=== PATIENT | female | born 1995 | race Caucasian/White ===

== ENCOUNTER 2017-05-11 08:43 | Emergency (ER) | payer BC, MEDICAID ==
[2017-05-11 09:07] VITALS: BP 126/87
--- NOTE | 2017-05-11 10:31 | EDM.PDOC ---
ED HPI GENERAL MEDICAL PROBLEM - General Chief Complaint: Upper Extremity Injury/Pain Stated Complaint: LT ARM INJURY Time Seen by Provider: 05/11/17 09:14 Source of Information: Reports: Patient, RN Notes Reviewed - History of Present Illness INITIAL COMMENTS - FREE TEXT/NARRATIVE: 21 year old female with L wrist pain. She fell unto her wrist last evening. Continued pain L wrist today, worse with motion. No other pain or injury. Left Lower Arm Pain Score (Numeric/FACES): 10 - Related Data Allergies Allergy/AdvReac Type Severity Reaction Status Date / Time ondansetron Allergy Hives Verified 05/11/17 09:03 Home Meds: Home Meds Albuterol [Proventil HFA] 2 puff INH ASDIRECTED PRN 07/19/15 [History] Control. 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 Psychiatric History: Reports: Anxiety, Depression - Infectious Disease History Infectious Disease History: Reports: None - Past Surgical History HEENT Surgical History: Reports: Tonsillectomy Social & Family History - Tobacco Use Smoking Status *Q: Never Smoker - Caffeine Use Caffeine Use: Reports: Soda, Tea - Recreational Drug Use Recreational Drug Use: No - Living Situation & Occupation Living situation: Reports: Single, with Family Review of Systems - Review of Systems Review Of Systems: See Below Constitutional: Reports: No Symptoms Eyes: Reports: No Symptoms Ears: Reports: No Symptoms Nose: Reports: No Symptoms Mouth/Throat: Reports: No Symptoms Respiratory: Denies: Shortness of Breath Cardiovascular: Denies: Chest Pain GI/Abdominal: Denies: Abdominal Pain, Nausea, Vomiting Musculoskeletal: Reports: Joint Pain (L wrist) Skin: Reports: Bruising (L wrist and forearm) ED EXAM, GENERAL - Physical Exam Exam: See Below General Appearance: Alert, No Apparent Distress Head: Atraumatic Neck: Supple Respiratory/Chest: No Respiratory Distress Extremities: Joint Swelling (question mild swelling L wrist), Limited Range of Motion (L wrist secondary to pain), Other (there is tenderness of the dorsal L wrist and very distal L forearm, no visible deformity). No: Leg Pain Neurological: No Motor/Sensory Deficits Skin Exam: Warm, Dry Course - Vital Signs Last Recorded V/S: Last Vital Signs Temp 97.4 F 05/11/17 09:03 Pulse 67 05/11/17 09:03 Resp 16 05/11/17 09:03 BP 126/87 05/11/17 09:03 Pulse Ox 99 05/11/17 09:03 - Orders/Labs/Meds Orders: Active Orders 24 hr Category Date Time Status Wrist Comp Min 3V Lt [CR] Stat Exams 05/11/17 09:23 Taken - Re-Assessments/Exams Free Text/Narrative Re-Assessment/Exam: 05/11/17 13:54 no fx Departure - Departure Time of Disposition: 10:23 Disposition: Home, Self-Care 01 Condition: Fair Clinical Impression: Left wrist sprain Qualifiers: Encounter type: initial encounter Qualified Code(s): S63.502A - Unspecified sprain of left wrist, initial encounter - Discharge Information Instructions: Wrist Sprain Referrals: Sherry Rangel NP [Primary Care Provider] - Forms: ED Department Discharge Additional Instructions: Nando wrap left wrist, ice packs and elevation as needed for swelling, Tylenol or ibuprofen as needed for pain, follow-up clinic if not getting back to normal within 5-7 days as expected - My Orders Last 24 Hours: My Active Orders 05/11/17 09:23 Wrist Comp Min 3V Lt [CR] Stat - Assessment/Plan Last 24 Hours: My Active Orders 05/11/17 09:23 Wrist Comp Min 3V Lt [CR] Stat
--- NOTE | 2017-05-11 19:07 | CR ---
Left wrist: Four views of the left wrist were obtained. Comparison: Previous MRI left wrist exam of 06/11/16 is available. Joint spaces are maintained. No fracture, dislocation or other bony abnormality is seen. Impression: 1. No abnormality is seen on four-view left wrist exam. Diagnostic code #1
== END 2017-05-11 11:00 | disposition home or self-care (01) ==
LOC: JD.ED 08:43
DX: S63.502A Unspecified sprain of left wrist, initial encounter (principal); J45.909 Unspecified asthma, uncomplicated; F41.9 Anxiety disorder, unspecified; F32.9 Major depressive disorder, single episode, unspecified; Z98.890 Other specified postprocedural states; Z88.8 Allergy status to other drugs, medicaments and biological substances; X58.XXXA Exposure to other specified factors, initial encounter
CPT/HCPCS: 73110-26-LT; 73110-LT; 99283

== ENCOUNTER 2017-07-06 18:05 | Emergency (ER) | payer BC ==
[2017-07-06 18:14] VITALS: BP 141/82
[2017-07-06] MEDS ORDERED: Sodium Chloride 0.9% 1,000 ML IV ONE (18:34)
--- NOTE | 2017-07-06 18:35 | EDM.PDOC ---
ED HPI GENERAL MEDICAL PROBLEM - General Chief Complaint: Abdominal Pain Stated Complaint: ABDOMINAL,SIDE AND BACK PAIN Time Seen by Provider: 07/06/17 18:25 Source of Information: Reports: Patient History Limitations: Reports: No Limitations - History of Present Illness INITIAL COMMENTS - FREE TEXT/NARRATIVE: 22-year-old female presents for evaluation treatment of right lower quadrant abdominal pain that radiates to her back pain. Patient reports that this pain has been going on and off for the last month. She reports that the pain is steadily worsening. States it is now a 10 out of 10 and worse with movement. She reports associated symptoms of a decreased appetite and nausea. She also reports feeling hot and cold but has not had any fevers. She states that she's tried Tylenol and Motrin without any symptom relief. She is also on hydrocortisone for wrist pain but did not take any hydrocodone for her abdominal pain. She denies any fevers, vomiting, dysuria, hematuria, diarrhea, constipation, melena or hematochezia. She no previous surgeries to her abdomen. Last menstrual period was June 13. She is currently on oral contraceptives. Right Lower Abdomen Pain Score (Numeric/FACES): 8 - Related Data Allergies Allergy/AdvReac Type Severity Reaction Status Date / Time ondansetron Allergy Hives Verified 07/06/17 18:14 Home Meds: Home Meds Albuterol [Proventil HFA] 2 puff INH ASDIRECTED PRN 07/19/15 [History] Control. 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 Denies: Fever GI/Abdominal: Reports: Abdominal Pain (RLQ), Decreased Appetite, Nausea. Denies : Constipation, Diarrhea, Hematochezia, Melena, Vomiting : Reports: No Symptoms. Denies: Dysuria, Hematuria Musculoskeletal: Reports: Back Pain (right lower back) ED EXAM, GI/ABD - Physical Exam Exam: See Below Exam Limited By: No Limitations General Appearance: Alert, WD/WN, No Apparent Distress, Obese Nose: Normal Inspection Throat/Mouth: Normal Inspection, Normal Voice, No Airway Compromise Respiratory/Chest: No Respiratory Distress, Lungs Clear, Normal Breath Sounds Cardiovascular: Normal Peripheral Pulses, Regular Rate, Rhythm, No Murmur GI/Abdominal Exam: Normal Bowel Sounds, Soft, Rebound, Other (mcburnies sign; + psosas sign; minor pain with heel percussion) Neurological: Alert, Oriented, Normal Cognition Psychiatric: Normal Affect, Normal Mood Skin Exam: Warm, Dry, Normal Color Course - Vital Signs Last Recorded V/S: Last Vital Signs Temp 36.1 C 07/06/17 18:11 Pulse 87 07/06/17 18:11 Resp 16 07/06/17 18:11 BP 141/82 H 07/06/17 18:11 Pulse Ox 100 07/06/17 18:11 - Orders/Labs/Meds Labs: Laboratory Tests 07/06/17 07/06/17 07/06/17 Range/Units 18:20 18:40 18:40 WBC 8.51 (3.98-10.04) K/mm3 RBC 4.39 (3.98-5.22) M/mm3 Hgb 14.1 (11.2-15.7) gm/L Hct 41.4 (34.1-44.9) % MCV 94.3 (79.4-94.8) fl MCH 32.1 (25.6-32.2) pg MCHC 34.1 (32.2-35.5) g/dl RDW Std Deviation 43.5 (36.4-46.3) fL Plt Count 332 (182-369) K/mm3 MPV 9.5 (9.4-12.3) fl Neutrophils % (Manual) 49 (40-60) % Band Neutrophils % 0 (0-10) % Lymphocytes % (Manual) 40 (20-40) % Atypical Lymphs % 7 % Monocytes % (Manual) 4 (2-10) % Eosinophils % (Manual) 0 L (0.7-5.8) % Basophils % (Manual) 0 L (0.1-1.2) Platelet Estimate Adequate Plt Morphology Comment Normal RBC Morph Comment Normal Sodium 143 (136-145) mEq/L Potassium 3.2 L (3.5-5.1) mEq/L Chloride 107 (98-107) mEq/L Carbon Dioxide 26 (21-32) mEq/L Anion Gap 13.2 (5-15) BUN 6 L (7-18) mg/dL Creatinine 0.9 (0.55-1.02) mg/dL Est Cr Clr Drug Dosing 86.10 mL/min Estimated GFR (MDRD) > 60 (>60) mL/min BUN/Creatinine Ratio 6.7 L (14-18) Glucose 111 H (74-106) mg/dL Calcium 9.3 (8.5-10.1) mg/dL Total Bilirubin 0.2 (0.2-1.0) mg/dL AST 17 (15-37) U/L ALT 21 (14-59) U/L Alkaline Phosphatase 41 L (46-116) U/L C-Reactive Protein 0.4 (<1.0) mg/dL Total Protein 7.4 (6.4-8.2) g/dl Albumin 3.9 (3.4-5.0) g/dl Globulin 3.5 gm/dL Albumin/Globulin Ratio 1.1 (1-2) HCG, Qual (NEGATIVE) Urine Color Yellow (Yellow) Urine Appearance Clear (Clear) Urine pH 7.0 (5.0-8.0) Ur Specific [place] 1.020 (1.005-1.030) Urine Protein Negative (Negative) Urine Glucose (UA) Negative (Negative) Urine Ketones Negative (Negative) Urine Occult Blood Negative (Negative) Urine Nitrite Negative (Negative) Urine Bilirubin Negative (Negative) Urine Urobilinogen 0.2 (0.2-1.0) Ur Leukocyte Esterase Negative (Negative) Urine RBC 0-5 (0-5) /hpf Urine WBC 0-5 (0-5) /hpf Ur Epithelial Cells 0-5 (0-5) /hpf Urine Bacteria Many H (FEW) /hpf Urine Mucus Not seen (FEW) /hpf 07/06/ Range/Units 18:40 WBC (3.98-10.04) K/mm3 RBC (3.98-5.22) M/mm3 Hgb (11.2-15.7) gm/L Hct (34.1-44.9) % MCV (79.4-94.8) fl MCH (25.6-32.2) pg MCHC (32.2-35.5) g/dl RDW Std Deviation (36.4-46.3) fL Plt Count (182-369) K/mm3 MPV (9.4-12.3) fl Neutrophils % (Manual) (40-60) % Band Neutrophils % (0-10) % Lymphocytes % (Manual) (20-40) % Atypical Lymphs % % Monocytes % (Manual) (2-10) % Eosinophils % (Manual) (0.7-5.8) % Basophils % (Manual) (0.1-1.2) Platelet Estimate Plt Morphology Comment RBC Morph Comment Sodium (136-145) mEq/L Potassium (3.5-5.1) mEq/L Chloride (98-107) mEq/L Carbon Dioxide (21-32) mEq/L Anion Gap (5-15) BUN (7-18) mg/dL Creatinine (0.55-1.02) mg/dL Est Cr Clr Drug Dosing mL/min Estimated GFR (MDRD) (>60) mL/min BUN/Creatinine Ratio (14-18) Glucose (74-106) mg/dL Calcium (8.5-10.1) mg/dL Total Bilirubin (0.2-1.0) mg/dL AST (15-37) U/L ALT (14-59) U/L Alkaline Phosphatase (46-116) U/L C-Reactive Protein (<1.0) mg/dL Total Protein (6.4-8.2) g/dl Albumin (3.4-5.0) g/dl Globulin gm/dL Albumin/Globulin Ratio (1-2) HCG, Qual Negative (NEGATIVE) Urine Color (Yellow) Urine Appearance (Clear) Urine pH (5.0-8.0) Ur Specific [place] (1.005-1.030) Urine Protein (Negative) Urine Glucose (UA) (Negative) Urine Ketones (Negative) Urine Occult Blood (Negative) Urine Nitrite (Negative) Urine Bilirubin (Negative) Urine Urobilinogen (0.2-1.0) Ur Leukocyte Esterase (Negative) Urine RBC (0-5) /hpf Urine WBC (0-5) /hpf Ur Epithelial Cells (0-5) /hpf Urine Bacteria (FEW) /hpf Urine Mucus (FEW) /hpf Meds: Medications Discontinued Medications Generic Name Dose Route Start Last Admin Trade Name Freq PRN Reason Stop Dose Admin Diatrizoate Meglum/Diatrizoate Sod 90 ml 07/06/17 20:44 07/06/17 20:53 Gastrografin 37% PO 07/06/17 20:45 90 ml ONETIME ONE Administration Sodium Chloride 1,000 mls @ 999 mls/hr 07/06/17 18:34 07/06/17 18:39 Normal Saline IV 07/06/17 19:34 999 mls/hr ONETIME ONE Administration Iopamidol 125 ml 07/06/17 20:44 07/06/17 20:53 Isovue-300 (61%) IVPUSH 07/06/17 20:45 125 ml ONETIME ONE Administration Metoclopramide HCl 5 mg 07/06/17 19:48 07/06/17 19:55 Reglan IVPUSH 07/06/17 19:49 5 mg ONETIME ONE Administration Sodium Chloride 10 ml 07/06/17 18:34 07/06/17 20:53 Saline Flush FLUSH 10 ml ASDIRECTED PRN Administration Keep Vein Open - Radiology Interpretation Free Text/Narrative:: CT of the abdomen and pelvis impression per [facility]: 1. Mesenteric adenitis in the right lower quadrant. 2. Normal retrocecal appendix. CT Results Date: 07/07/17 - Re-Assessments/Exams Free Text/Narrative Re-Assessment/Exam: 07/06/17 21:30 I reviewed the labs and imaging with the patient. We will follow up with primary care provider in 2 weeks for recheck of her symptoms. Please return to ER for symptoms change or worsen. Discharge instructions as documented. Departure - Departure Time of Disposition: 21:30 Disposition: Home, Self-Care 01 Condition: Good Clinical Impression: Mesenteric adenitis, Hypokalemia - Discharge Information Instructions: Mesenteric Adenitis, Pediatric, Hypokalemia Referrals: Sherry Rangel NP [Primary Care Provider] - Forms: ED Department Discharge, ED Return to Work/School Form Additional Instructions: [id number] Tylenol or Motrin as needed for pain relief. Make sure you're drinking plenty of fluids. Follow up with your primary care provider within 2 weeks for recheck of your symptoms. Recommend clear liquids and bland diet tomorrow. Martin diet recommendations include bread, rice, applesauce, toast, yogurt, bananas, soup broth, etc. Please return to ER if your symptoms change or worsen.
[2017-07-06] MEDS: Sodium Chloride 0.9% 10 ML Syringe FLUSH PRN ×2 (18:42→20:53)
[2017-07-06] MEDS ORDERED: Metoclopramide 10 MG/2 ML SDV IVPUSH ONE (19:48)
[2017-07-06] MEDS ORDERED: Diatrizoate Meglumine/Diatrizoate Sodium 37% 120 ML Bottle PO ONE (20:44)
[2017-07-06] MEDS ORDERED: Iopamidol 612 MG/ML 150 ML Bottle IVPUSH ONE (20:44)
--- NOTE | 2017-07-07 09:42 | CT ---
CT abdomen and pelvis Technique: Multiple axial sections were obtained from above the dome of the diaphragm inferiorly to the pubic symphysis. Intravenous and oral contrast has been given. Comparison: Previous CT exam of 08/27/[address] exam is a noncontrast exam. Findings: Small portion of the visualized lung bases shows nothing acute. Liver shows no focal abnormality. Spleen appears within normal limits. Adrenal glands show no nodule. Pancreas is within normal limits. Gallbladder shows no calcified gallstones. Kidneys show symmetric contrast enhancement without hydronephrosis or mass. Appendix is seen and is normal in size. Aorta shows no aneurysmal dilatation. No retroperitoneal adenopathy or mesenteric abnormalities are seen. No pelvic mass or adenopathy is seen. Delayed images show contrast within the distal ureters and within the bladder. No free fluid or inflammatory change is seen. Several slightly prominent lymph nodes are seen within the right abdomen. 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 Impression: 1. Incidental spine finding. 2. Several slightly prominent lymph nodes within the right abdomen possibly due to so-called mesenteric adenitis. 3. No additional abnormality is identified on CT study of the abdomen and pelvis. Diagnostic code #3 Agree with preliminary report issued by [facility] ([facility] preliminary report dictated on 07/06/17, 10:17 PM Central Time)
== END 2017-07-06 21:55 | disposition home or self-care (01) ==
LOC: JD.ED 18:05
DX: I88.0 Nonspecific mesenteric lymphadenitis (principal); E87.6 Hypokalemia; J45.909 Unspecified asthma, uncomplicated; F32.9 Major depressive disorder, single episode, unspecified; Z98.890 Other specified postprocedural states; Z88.8 Allergy status to other drugs, medicaments and biological substances
CPT/HCPCS: 36415; 74177; 80053; 81001; 84703; 85025; 86140; 87086; 96361; 96374; 99284; J2765; J7040; J7050; Q9963; Q9967; 99283

== ENCOUNTER 2018-03-22 02:36 | Emergency (ER) | payer BC, MEDICAID ==
--- NOTE | 2018-03-22 02:48 | EDM.PDOC ---
ED HPI GENERAL MEDICAL PROBLEM - General Chief Complaint: Gastrointestinal Problem Stated Complaint: VOMITING Time Seen by Provider: 03/22/18 02:48 Source of Information: Reports: Patient History Limitations: Reports: No Limitations - History of Present Illness INITIAL COMMENTS - FREE TEXT/NARRATIVE: 22-year-old female presents to the ED with intractable nausea and vomiting since 7:00 last evening. States she didn't feel well yesterday and did need much at all the day before because of feeling ill. She went home early from work yesterday p.m. about 1430 hrs.She then started vomiting up previously eaten food that is only partially digested. Subsequently emesis of been small quantities of bilious material without blood. She also has associated loose diarrheal stools but small amounts. No blood per rectum.Diffuse upper abdominal pain from vomiting so much. Feels lightheaded and dizzy.oes not believe she is . Onset: Sudden Onset Date: 03/21/18 Onset Time: 19:00 Duration: Hour(s): Location: Reports: Abdomen (diffuse upper abdominal pain with intractable nausea and vomiting. Associated looseiarrhea stools.) Quality: Reports: Other Severity: Moderate (bdominal muscle pain from vomiting so much) Improves with: Reports: None Worsens with: Reports: Eating Context: Denies: Activity, Exercise, Lifting, Sick Contact, Trauma, Other Associated Symptoms: Reports: Loss of Appetite, Malaise (dizzy when she stands.) , Weakness, Other. 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 Although she tried [employer] yesterday afternoon before she was vomiting) Abdomen Pain Score (Numeric/FACES): 3 - Related Data Allergies Allergy/AdvReac Type Severity Reaction Status Date / Time ondansetron Allergy Hives Verified 03/22/18 02:50 Home Meds: Home Meds Albuterol [Proventil HFA] 2 puff INH ASDIRECTED PRN 07/19/15 [History] Control. 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 Denies: Fever HEENT: Reports: No Symptoms Respiratory: Reports: No Symptoms Cardiovascular: Reports: No Symptoms Endocrine: Reports: No Symptoms GI/Abdominal: Reports: Abdominal Pain (pper abdominal pain from vomiting so much.), Diarrhea, Nausea (loose watery stools.), Vomiting : Reports: No Symptoms (persistent nausea and vomiting since 7:00 last night.) Musculoskeletal: Reports: No Symptoms Skin: Reports: No Symptoms Neurological: Reports: Dizziness Psychiatric: Reports: No Symptoms Hematologic/Lymphatic: Reports: No Symptoms Immunologic: Reports: No Symptoms ED EXAM, GI/ABD - Physical Exam Exam: See Below Exam Limited By: No Limitations General Appearance: Alert, WD/WN, Moderate Distress Eyes: Bilateral: Normal Appearance Throat/Mouth: Normal Inspection, Normal Oropharynx, Other Head: Atraumatic, Normocephalic (tongue is minimally dry.) Neck: Normal Inspection, Supple, Non-Tender, Full Range of Motion. No: Lymphadenopathy (L), Lymphadenopathy (R) Respiratory/Chest: No Respiratory Distress, Lungs Clear, Normal Breath Sounds, No Accessory Muscle Use Cardiovascular: Normal Peripheral Pulses, Regular Rate, Rhythm, No Edema, No Murmur, No Rub GI/Abdominal Exam: Normal Bowel Sounds, Soft, Tender (jessi in the epigastrium but more muscular in origin.). No: Guarding, Rigid, Rebound Back Exam: Normal Inspection, Full Range of Motion. No: CVA Tenderness (L), CVA Tenderness (R) Extremities: Normal Inspection, Normal Range of Motion, Non-Tender, No Pedal Edema Neurological: Alert, Oriented, CN II-XII Intact, Normal Cognition Psychiatric: Normal Affect, Normal Mood Skin Exam: Warm, Dry, Intact, Normal Color, No Rash Course - Vital Signs Last Recorded V/S: Last Vital Signs Temp 36.6 C 03/22/18 02:46 Pulse 88 03/22/18 02:46 Resp 18 03/22/18 02:46 BP 131/71 03/22/18 02:46 Pulse Ox 100 03/22/18 02:46 - Orders/Labs/Meds Orders: Active Orders 24 hr Category Date Time Status URINALYSIS W/O MICROSCOPIC [UA W/O MICROSCOPIC] [URIN] Lab 03/22/18 02:55 Ordered Stat Dextrose 5%-Lactated Ringers 1,000 ml Med 03/22/18 03:00 Active IV ASDIRECTED Medication Orders Dextrose/Lactated Ringer's (Dextrose 5%-Lactated Ringers) 1,000 mls @ 999 mls/ hr IV ASDIRECTED BONNY Last Admin: 03/22/18 03:08 Dose: 999 mls/hr Labs: Laboratory Tests 03/22/18 03/22/18 03/22/18 Range/Units 03:11 03:11 03:11 WBC 11.53 H (3.98-10.04) K/mm3 RBC 4.56 (3.98-5.22) M/mm3 Hgb 14.7 (11.2-15.7) gm/L Hct 42.7 (34.1-44.9) % MCV 93.6 (79.4-94.8) fl MCH 32.2 (25.6-32.2) pg MCHC 34.4 (32.2-35.5) g/dl RDW Std Deviation 42.7 (36.4-46.3) fL Plt Count 287 (182-369) K/mm3 MPV 10.0 (9.4-12.3) fl Neutrophils % (Manual) 91 H (40-60) % Band Neutrophils % 0 (0-10) % Lymphocytes % (Manual) 7 L (20-40) % Atypical Lymphs % 1 % Monocytes % (Manual) 1 L (2-10) % Eosinophils % (Manual) 0 L (0.7-5.8) % Basophils % (Manual) 0 L (0.1-1.2) Platelet Estimate Adequate Plt Morphology Comment Normal RBC Morph Comment Normal Sodium 138 (136-145) mEq/L Potassium 3.4 L (3.5-5.1) mEq/L Chloride 102 (98-107) mEq/L Carbon Dioxide 23 (21-32) mEq/L Anion Gap 16.4 H (5-15) BUN 9 (7-18) mg/dL Creatinine 0.9 (0.55-1.02) mg/dL Est Cr Clr Drug Dosing TNP Estimated GFR (MDRD) > 60 (>60) mL/min BUN/Creatinine Ratio 10.0 L (14-18) Glucose 125 H (74-106) mg/dL Calcium 9.2 (8.5-10.1) mg/dL Total Bilirubin 0.8 (0.2-1.0) mg/dL AST 21 (15-37) U/L ALT 35 (14-59) U/L Alkaline Phosphatase 53 (46-116) U/L C-Reactive Protein 1.9 H* (<1.0) mg/dL Total Protein 7.4 (6.4-8.2) g/dl Albumin 4.0 (3.4-5.0) g/dl Globulin 3.4 gm/dL Albumin/Globulin Ratio 1.2 (1-2) Lipase 122 (73-393) U/L HCG, Qual Negative (NEGATIVE) Meds: Medications Generic Name Dose Route Start Last Admin Trade Name Freq PRN Reason Stop Dose Admin Dextrose/Lactated Ringer's 1,000 mls @ 999 mls/hr 03/22/18 03:00 03/22/18 03: 08 Dextrose 5%-Lactated Ringers IV 999 mls/hr ASDIRECTED BONNY Administration Discontinued Medications Generic Name Dose Route Start Last Admin Trade Name Freq PRN Reason Stop Dose Admin Metoclopramide HCl 7.5 mg 03/22/18 02:54 03/22/18 03:09 Reglan IVPUSH 03/22/18 02:55 7.5 mg ONETIME ONE Administration Metoclopramide HCl 5 mg 03/22/18 03:50 Reglan PO 03/22/18 03:51 ONETIME ONE Metoclopramide HCl 10 mg 03/22/18 03:53 Reglan PO 03/22/18 03:54 ONETIME ONE - Radiology Interpretation Free Text/Narrative:: 2-year-old female presents to the ED with intractable nausea and vomiting since 7:00 last night. She continues to have bilious emesis and loose watery stools. She believes there is very little chance of foodborne illness and she has any note since before Mother's Day. Which is 4 days ago no fever mild chills.Suspect viral gastroenteritis. Plan IV d5 Ringer's lactate at open. Reglan 7.5 mg IV. Routine labs to include a serum beta-hCG. - Re-Assessments/Exams Free Text/Narrative Re-Assessment/Exam: 03/22/18 03:46 White count is elevated at 11.53. Differential pending hemoglobin is 14.7 with hematocrit of 42.7. Blood count is normal at 287,000. Sodium is 138 with potassium slightly low at 3.4. Chloride 102 with a bicarbonate of 23. And a gap is elevated at 16.4. Glucose is 125. Calcium is 9.2. Total bilirubin is 0.8. Liver function otherwise normal. C-reactive protein mildly elevated 1.9. Lipase normal at 122. Serum Beta-hCG was negative. 03/22/18 03:51 Patient is feeling better with stomach settling down no further nausea vomiting. I'm going to have her finish up her full liter of IV fluids due to ran gapping 16.9.he has she is allergic to Zofran I broke out in hives she will be discharged home on Reglan tablets 5 mg strength one every 6 hours as needed for nausea or vomiting relief. Will recommend taking 2 consecutive tablets over the next 12 hours and after that adopt a wait and see approach as to whether or not there is any further nausea or vomiting. Diet to be clear fluids such as Gatorade Powerade and advance to light diet as tolerated. Is up from the workplace yesterday and today. Departure - Departure Time of Disposition: 03:52 Disposition: Home, Self-Care 01 Condition: Fair Clinical Impression: Viral gastroenteritis - Discharge Information Prescriptions: Metoclopramide HCl [Reglan] 10 mg PO Q6H #4 tablet Instructions: Viral Gastroenteritis, Adult, [id number] Referrals: Sherry Rangel NP [Primary Care Provider] - Forms: ED Department Discharge, ED Return to Work/School Form Additional Instructions: Evaluation the emergency room today in regards to development of acute onset of nausea vomiting and diarrhea i.e. viral gastroenteritis. You were therefore treated with intravenous fluids to provide rehydration. Reglan 10 mg was given intravenously for nausea and vomiting relief.lab tests didn't reveal mild bleeding low serum potassium level and volume depletion.treatment is home to bed. Suggest repeating Reglan at about 8:30 this morning and then again about 2: 30 this afternoon. Take 10 mg tablet. After this adopt a wait and see approach as to whether not the nausea and vomiting settles down.Diet to be clear fluids such as Gatorade or Powerade ideally 5-6 ounces sipped per hour if this is tolerated may advance diet to crackers and it or toes. After this may advance diet to broth soup or turkey rice's/turkey noodle so Of course off work today and likely tomorrow until you are back to eating a regular diet.void all dairy products and no apple or grape juice until stools are formed back up.Follow-up with personal care physician or return to the ED of vomiting continues. - My Orders Last 24 Hours: My Active Orders 03/22/18 02:55 URINALYSIS W/O MICROSCOPIC [UA W/O MICROSCOPIC] [URIN] Stat 03/22/18 03:00 Dextrose 5%-Lactated Ringers 1,000 ml IV ASDIRECTED - Assessment/Plan Last 24 Hours: My Active Orders 03/22/18 02:55 URINALYSIS W/O MICROSCOPIC [UA W/O MICROSCOPIC] [URIN] Stat 03/22/18 03:00 Dextrose 5%-Lactated Ringers 1,000 ml IV ASDIRECTED
[2018-03-22 02:49] VITALS: BP 131/71
[2018-03-22] MEDS ORDERED: Metoclopramide 10 MG/2 ML SDV IVPUSH ONE (02:54)
[2018-03-22] MEDS ORDERED: Dextrose 5%-Lactated Ringers 1,000 ML IV SCH (03:00)
[2018-03-22] MEDS ORDERED: Metoclopramide 5 MG Tab PO ONE (03:50)
[2018-03-22] MEDS ORDERED: Metoclopramide 10 MG Tab PO ONE (03:53)
== END 2018-03-22 04:43 | disposition home or self-care (01) ==
LOC: JD.ED 02:36
DX: A08.4 Viral intestinal infection, unspecified (principal)
CPT/HCPCS: 36415; 80053; 83690; 84703; 85007; 85027; 86140; 96361; 96374; 99284; A9270; J2765; J7042; 99283

== ENCOUNTER 2018-12-17 21:38 | Emergency (ER) | payer MEDICAID ==
[2018-12-17 21:46] VITALS: BP 144/94
--- NOTE | 2018-12-17 21:56 | EDM.PDOC ---
ED HPI GENERAL MEDICAL PROBLEM - General Chief Complaint: Upper Extremity Injury/Pain Stated Complaint: FELL ON RIGHT ARM Time Seen by Provider: 12/17/18 21:50 Source of Information: Reports: Patient, Family (friend) History Limitations: Reports: No Limitations - History of Present Illness INITIAL COMMENTS - FREE TEXT/NARRATIVE: 23-year-old female presents to the ED for evaluation of fall on her right elbow approximately 1600 hrs. today. Patient states she slipped on ice and fell with direct blow to the elbow area. She states she is going thought she was okay with pain localized to the elbow but subsequent his develop pain in the proximal aspect of the forearm and in the distal aspect of her humerus on the right side. Of note she is right-hand dominant. She denies hitting her head or hurting her neck or any other body part. Onset: Today Onset Date: 12/17/18 Onset Time: 16:00 Duration: Hour(s): Location: Reports: Upper Extremity, Right Quality: Reports: Ache (Slipped and fell on ice with direct blow to the right elbow. Pain radiates up towards the right shoulder as well as into the proximal aspect of her right forearm.), Throbbing Severity: Moderate Improves with: Reports: Rest Worsens with: Reports: Movement Context: Reports: Trauma. Denies: Activity (Pain is worse with attempts to flex or extend at the elbow as well as pronate or supinate.), Exercise, Lifting , Sick Contact Associated Symptoms: Reports: No Other Symptoms (Septum fell on the ice.) Treatments VENTILATOR SPECIALIST: Reports: NSAIDS Other Treatments VENTILATOR SPECIALIST: tylenol at 1930 Right Elbow Pain Score (Numeric/FACES): 9 - Related Data Allergies Allergy/AdvReac Type Severity Reaction Status Date / Time ondansetron Allergy Hives Verified 12/17/18 21:43 Home Meds: Home Meds Albuterol [Proventil HFA] 2 puff INH ASDIRECTED PRN 07/19/15 [History] Control. 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 Psychiatric History: Reports: Anxiety, Depression - Infectious Disease History Infectious Disease History: Reports: None - Past Surgical History HEENT Surgical History: Reports: Tonsillectomy Social & Family History - Family History Family Medical History: Noncontributory - Caffeine Use Caffeine Use: Reports: Soda - Recreational Drug Use Recreational Drug Use: No - Living Situation & Occupation Living situation: Reports: Single, with Family Review of Systems - Review of Systems Review Of Systems: See Below Constitutional: Reports: No Symptoms Eyes: Reports: No Symptoms Ears: Reports: No Symptoms Nose: Reports: No Symptoms Mouth/Throat: Reports: No Symptoms Respiratory: Reports: No Symptoms Cardiovascular: Reports: No Symptoms GI/Abdominal: Reports: No Symptoms Genitourinary: Reports: No Symptoms Musculoskeletal: Reports: Other Skin: Reports: No Symptoms (Right elbow right proximal humerus and right forearm pain.) Neurological: Reports: No Symptoms Psychiatric: Reports: No Symptoms ED EXAM, GENERAL - Physical Exam Exam: See Below Exam Limited By: No Limitations General Appearance: Alert, WD/WN, Mild Distress Eye Exam: Bilateral Eye: Normal Inspection Peripheral Pulses: 3+: Radial (L), Radial (R) Extremities: Other (Examination limited to the right upper extremity. She has some pain and swelling over the olecranon process this point of maximal tenderness is. There is pain on from compression over the distal right humerus she has very limited pronation supination at the elbow. She has pain on from compression of the proximal ulna as well. There is no obvious deformity.) Skin Exam: Warm, Dry, Intact, Normal Color Course - Vital Signs Last Recorded V/S: Last Vital Signs Temp 35.6 C 12/17/18 21:43 Pulse 85 12/17/18 21:43 Resp 16 12/17/18 21:43 BP 144/94 H 12/17/18 21:43 Pulse Ox 98 12/17/18 21:43 - Orders/Labs/Meds Orders: Active Orders 24 hr Category Date Time Status Forearm 2V Rt [CR] Stat Exams 12/17/18 21:51 Taken Humerus Rt [CR] Stat Exams 12/17/18 21:51 Taken - Radiology Interpretation Free Text/Narrative:: 23-year-old female presents the ED after slipping and falling on the ice this afternoon. She landed with a direct blow to her right elbow with injury to the elbow itself and now has pain in the proximal aspect of her right forearm and proximal right distal humerus. Some mild pain over the before meals joint on the right side as well. Plan x-ray right humerus x-ray right forearm. - Re-Assessments/Exams Free Text/Narrative Re-Assessment/Exam: 12/17/18 22:25 x-rays are not yet done. 12/17/18 22:58 x-rays have been completed. X-ray of the right humerus is within normal limits showing no fracture or malposition. Similarly x-rays of the right forearm are within normal limits. There is a perhaps a very slightly elevated anterior fat pad suggesting some contusion to the elbow. No fractures are identified. Treatment will be conservative with right arm sling for 2-3 days ice pack --one half hour out of every 4 hours for pain. Given Motrin 600 mg by mouth now and 1 Percocet 5/325 mg by mouth for pain at this time on single be placed for the next 3 days Departure - Departure Time of Disposition: 23:05 Disposition: Home, Self-Care 01 Condition: Fair Clinical Impression: Contusion of elbow and forearm Qualifiers: Encounter type: initial encounter Laterality: right Qualified Code(s): S50.11XA - Contusion of right forearm, initial encounter - Discharge Information *PRESCRIPTION DRUG MONITORING PROGRAM REVIEWED*: Not Applicable *COPY OF PRESCRIPTION DRUG MONITORING REPORT IN PATIENT LETICIA: Not Applicable Instructions: Contusion, [id number] Referrals: Sherry Rangel NP [Primary Care Provider] - Forms: ED Department Discharge Additional Instructions: Evaluation the emergency room tonight in regards to slip and fall on the ice earlier today with blunt force trauma to the right elbow. This resulted in pain in the distal aspect of your lower arm or humerus area as well as in the elbow and proximal forearm. X-rays of humerus elbow and forearm were carried out in the ED. No fractures are identified. Treatment is time to heal. I suggest right arm sling for about 3 days to allow the swelling to go down. Ice pack to the area one half hour out of every 4 hours for the next 2 days to reduce pain and swelling. Motrin 600 mg every 6 hours to reduce pain and inflammation. Expect gradual improvement over the next 3-7 days. - My Orders Last 24 Hours: My Active Orders 12/17/18 21:51 Forearm 2V Rt [CR] Stat Humerus Rt [CR] Stat - Assessment/Plan Last 24 Hours: My Active Orders 12/17/18 21:51 Forearm 2V Rt [CR] Stat Humerus Rt [CR] Stat
[2018-12-17] MEDS ORDERED: Ibuprofen 600 MG Tab PO ONE (23:03)
[2018-12-17] MEDS ORDERED: Acetaminophen/oxyCODONE 325-5 MG Tab PO ONE (23:04)
--- NOTE | 2018-12-18 07:25 | CR ---
Right forearm: Two views of the right forearm were obtained. Comparison: No previous forearm study. No fracture or other bony abnormality is seen. Impression: 1. No abnormality is identified on right forearm study. Diagnostic code #1
--- NOTE | 2018-12-18 07:25 | CR ---
Right humerus: Two views of the right humerus were obtained. Comparison: No prior study. No fracture or other bony abnormality is seen. Impression: 1. No abnormality is identified on two-view right humerus study. Diagnostic code #1
== END 2018-12-17 23:30 | disposition home or self-care (01) ==
LOC: JD.ED 21:38
DX: S50.11XA Contusion of right forearm, initial encounter (principal); J45.909 Unspecified asthma, uncomplicated; F41.9 Anxiety disorder, unspecified; F32.9 Major depressive disorder, single episode, unspecified; F17.290 Nicotine dependence, other tobacco product, uncomplicated; W00.0XXA Fall on same level due to ice and snow, initial encounter; W22.8XXA Striking against or struck by other objects, initial encounter; Z88.8 Allergy status to other drugs, medicaments and biological substances; Z79.899 Other long term (current) drug therapy; Z79.3 Long term (current) use of hormonal contraceptives
CPT/HCPCS: 73060; 73090; 99283; A9270; 99282

== ENCOUNTER 2019-03-26 01:01 | Emergency (ER) | payer MEDICAID ==
[2019-03-26 01:19] VITALS: BP 132/89
[2019-03-26] MEDS ORDERED: Metoclopramide 10 MG/2 ML SDV IVPUSH ONE (01:39)
--- NOTE | 2019-03-26 01:40 | EDM.PDOC ---
ED HPI GENERAL MEDICAL PROBLEM - General Chief Complaint: Gastrointestinal Problem Stated Complaint: FEVER, SICK TO STOMACH AND SHAKING Time Seen by Provider: 03/26/19 01:33 Source of Information: Reports: Patient History Limitations: Reports: No Limitations - History of Present Illness INITIAL COMMENTS - FREE TEXT/NARRATIVE: 23-year-old female presents to the ED with feeling ill for the last 6-12 hours. She feels febrile and chilled. Feels nauseated but has not vomited. Had one loose diarrhea stool today. Has not ate much today. She is currently menstruating. Period is 5 days earlier than anticipated. Period is heavier than normal as well. She is been traveling back from [place] possibility of foodborne illness exists although no one else she is with has become ill. Denies any urinary tract symptoms. Denies cough or sputum production. Onset: Gradual Onset Date: 03/25/19 Duration: Hour(s): Location: Reports: Abdomen, Generalized (Feels very nauseated.) Quality: Reports: Other Severity: Moderate Improves with: Reports: None Worsens with: Reports: None Context: Reports: Other (Has been traveling from [place] back to [place] over the last 4 days). Denies: Activity ( Both chills.), Exercise, Lifting, Sick Contact, Trauma Associated Symptoms: Reports: Fever/Chills, Loss of Appetite, Malaise, Nausea/ Vomiting, Weakness. Denies: Confusion, Chest Pain, Cough, cough w sputum, Diaphoresis, Headaches, Rash, Seizure (Nausea without vomiting), Shortness of Breath, Syncope Treatments ACTIVITIES DIRECTOR: Reports: Other (see below) (None.) Right Forehead Pain Score (Numeric/FACES): 8 - Related Data Allergies Allergy/AdvReac Type Severity Reaction Status Date / Time ondansetron Allergy Hives Verified 03/26/19 01:19 Home Meds: Home Meds Albuterol [Proventil HFA] 2 puff INH ASDIRECTED PRN 07/19/15 [History] Control. 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 Child is now 5 years old) Other PLANER SETTER History: heavy periods Psychiatric History: Reports: Anxiety, Depression - Infectious Disease History Infectious Disease History: Reports: None - Past Surgical History HEENT Surgical History: Reports: Tonsillectomy Social & Family History - Family History Family Medical History: Noncontributory - Tobacco Use Smoking Status *Q: Never Smoker - Caffeine Use Caffeine Use: Reports: Energy Drinks - Recreational Drug Use Recreational Drug Use: No - Living Situation & Occupation Living situation: Reports: Single, with Family ED ROS GENERAL - Review of Systems Review Of Systems: See Below Constitutional: Reports: Fever, Chills, Malaise, Weakness, Fatigue, Decreased Appetite HEENT: Reports: Glasses Respiratory: Reports: No Symptoms Cardiovascular: Reports: No Symptoms Endocrine: Reports: No Symptoms GI/Abdominal: Reports: Abdominal Pain (Abdominal discomfort but not true cramping pain. She does have some menstrual cramping pain), Diarrhea ( suprapubically. one loose stool yesterday. No blood noted ), Decreased Appetite , Nausea. Denies: Vomiting : Reports: Other (Currently on fifth day of menses.. His 5 days earlier than anticipated. She is on oral control.) Musculoskeletal: Reports: No Symptoms Skin: Reports: No Symptoms Neurological: Reports: Headache, Weakness. Denies: Confusion, Dizziness, Numbness, Paresthesia, Pre-Existing Deficit, Seizure, Syncope, Tingling, Tremors , Trouble Speaking, Difficulty Walking Psychiatric: Reports: No Symptoms Hematologic/Lymphatic: Reports: No Symptoms Immunologic: Reports: No Symptoms ED EXAM, GI/ABD - Physical Exam Exam: See Below Exam Limited By: No Limitations General Appearance: Alert, WD/WN, No Apparent Distress, Other (Temperature is 36.6. Face is flushed and feels warm but the rest of her body is normal temperature.) Eyes: Bilateral: Normal Appearance Ears: Normal TMs (No scleral icterus.) Throat/Mouth: Other (Tongue is mildly dry and coated.) Head: Atraumatic, Normocephalic Neck: Normal Inspection, Supple, Non-Tender, Full Range of Motion. No: Lymphadenopathy (L), Lymphadenopathy (R) Respiratory/Chest: No Respiratory Distress, Lungs Clear, Normal Breath Sounds, No Accessory Muscle Use, Chest Non-Tender Cardiovascular: Normal Peripheral Pulses, Regular Rate, Rhythm, No Edema, No Gallop, No Murmur, No Rub GI/Abdominal Exam: Normal Bowel Sounds, Soft, Non-Tender, No Organomegaly, No Abnormal Bruit, No Mass, Pelvis Stable Back Exam: Normal Inspection, Full Range of Motion, CVA Tenderness (R) (Mild.). No: CVA Tenderness (L) Extremities: Normal Inspection, Normal Range of Motion, Non-Tender Neurological: Alert, Oriented, CN II-XII Intact, Normal Cognition Psychiatric: Normal Affect, Normal Mood Skin Exam: Warm, Dry, Intact, Normal Color, No Rash Course - Vital Signs Last Recorded V/S: Last Vital Signs Temp 36.6 C 03/26/19 01:16 Pulse Resp 16 03/26/19 01:16 BP 132/89 03/26/19 01:16 Pulse Ox 100 03/26/19 01:16 - Orders/Labs/Meds Orders: Active Orders 24 hr Category Date Time Status Dextrose 5%-0.9% NaCl [Dextrose 5%-Normal Saline] 1,000 Med 03/26/19 01:45 Active ml IV ASDIRECTED Medication Orders Dextrose/Sodium Chloride (Dextrose 5%-Normal Saline) 1,000 mls @ 999 mls/hr IV ASDIRECTED BONNY Last Admin: 03/26/19 01:56 Dose: 999 mls/hr Labs: Laboratory Tests 03/26/19 03/26/19 03/26/19 Range/Units 02:00 02:00 02:39 WBC 8.41 (3.98-10.04) K/mm3 RBC 4.54 (3.98-5.22) M/mm3 Hgb 14.5 (11.2-15.7) gm/L Hct 42.4 (34.1-44.9) % MCV 93.4 (79.4-94.8) fl MCH 31.9 (25.6-32.2) pg MCHC 34.2 (32.2-35.5) g/dl RDW Std Deviation 41.9 (36.4-46.3) fL Plt Count 288 (182-369) K/mm3 MPV 9.7 (9.4-12.3) fl Neutrophils % (Manual) 57 (40-60) % Band Neutrophils % 0 (0-10) % Lymphocytes % (Manual) 34 (20-40) % Atypical Lymphs % 0 % Monocytes % (Manual) 8 (2-10) % Eosinophils % (Manual) 1 (0.7-5.8) % Basophils % (Manual) 0 L (0.1-1.2) Platelet Estimate Adequate RBC Morph Comment Normal Sodium 142 (136-145) mEq/L Potassium 3.2 L (3.5-5.1) mEq/L Chloride 104 (98-107) mEq/L Carbon Dioxide 25 (21-32) mEq/L Anion Gap 16.2 H (5-15) BUN 5 L (7-18) mg/dL Creatinine 0.9 (0.55-1.02) mg/dL Est Cr Clr Drug Dosing 85.38 mL/min Estimated GFR (MDRD) > 60 (>60) mL/min BUN/Creatinine Ratio 5.6 L (14-18) Glucose 111 H (74-106) mg/dL Calcium 9.2 (8.5-10.1) mg/dL Total Bilirubin 0.3 (0.2-1.0) mg/dL AST 21 (15-37) U/L ALT 32 (14-59) U/L Alkaline Phosphatase 58 (46-116) U/L C-Reactive Protein < 0.2 (<1.0) mg/dL Total Protein 7.4 (6.4-8.2) g/dl Albumin 3.9 (3.4-5.0) g/dl Globulin 3.5 gm/dL Albumin/Globulin Ratio 1.1 (1-2) Amylase 46 (25-115) U/L Urine Color (Yellow) Urine Appearance (Clear) Urine pH (5.0-8.0) Ur Specific [place] (1.005-1.030) Urine Protein (Negative) Urine Glucose (UA) (Negative) Urine Ketones (Negative) Urine Occult Blood (Negative) Urine Nitrite (Negative) Urine Bilirubin (Negative) Urine Urobilinogen (0.2-1.0) Ur Leukocyte Esterase (Negative) Urine RBC (0-5) /hpf Urine WBC (0-5) /hpf Ur Epithelial Cells (0-5) /hpf Amorphous Sediment (NOT SEEN) /hpf Urine Bacteria (FEW) /hpf Urine Mucus (FEW) /hpf Urine HCG, Qual Negative (NEGATIVE) 03/26/19 Range/Units 02:43 WBC (3.98-10.04) K/mm3 RBC (3.98-5.22) M/mm3 Hgb (11.2-15.7) gm/L Hct (34.1-44.9) % MCV (79.4-94.8) fl MCH (25.6-32.2) pg MCHC (32.2-35.5) g/dl RDW Std Deviation (36.4-46.3) fL Plt Count (182-369) K/mm3 MPV (9.4-12.3) fl Neutrophils % (Manual) (40-60) % Band Neutrophils % (0-10) % Lymphocytes % (Manual) (20-40) % Atypical Lymphs % % Monocytes % (Manual) (2-10) % Eosinophils % (Manual) (0.7-5.8) % Basophils % (Manual) (0.1-1.2) Platelet Estimate RBC Morph Comment Sodium (136-145) mEq/L Potassium (3.5-5.1) mEq/L Chloride (98-107) mEq/L Carbon Dioxide (21-32) mEq/L Anion Gap (5-15) BUN (7-18) mg/dL Creatinine (0.55-1.02) mg/dL Est Cr Clr Drug Dosing mL/min Estimated GFR (MDRD) (>60) mL/min BUN/Creatinine Ratio (14-18) Glucose (74-106) mg/dL Calcium (8.5-10.1) mg/dL Total Bilirubin (0.2-1.0) mg/dL AST (15-37) U/L ALT (14-59) U/L Alkaline Phosphatase (46-116) U/L C-Reactive Protein (<1.0) mg/dL Total Protein (6.4-8.2) g/dl Albumin (3.4-5.0) g/dl Globulin gm/dL Albumin/Globulin Ratio (1-2) Amylase (25-115) U/L Urine Color [place] H (Yellow) Urine Appearance Cloudy H (Clear) Urine pH 6.0 (5.0-8.0) Ur Specific [place] 1.025 (1.005-1.030) Urine Protein 1+ H (Negative) Urine Glucose (UA) Trace H (Negative) Urine Ketones Negative (Negative) Urine Occult Blood 3+ H (Negative) Urine Nitrite Negative (Negative) Urine Bilirubin Negative (Negative) Urine Urobilinogen 0.2 (0.2-1.0) Ur Leukocyte Esterase Negative (Negative) Urine RBC >100 H (0-5) /hpf Urine WBC 0-5 (0-5) /hpf Ur Epithelial Cells 0-5 (0-5) /hpf Amorphous Sediment Few H (NOT SEEN) /hpf Urine Bacteria Few (FEW) /hpf Urine Mucus Few (FEW) /hpf Urine HCG, Qual (NEGATIVE) Meds: Medications Generic Name Dose Route Start Last Admin Trade Name Freq PRN Reason Stop Dose Admin Dextrose/Sodium Chloride 1,000 mls @ 999 mls/hr 03/26/19 01:45 03/26/19 01:56 Dextrose 5%-Normal Saline IV 999 mls/hr ASDIRECTED BONNY Administration Discontinued Medications Generic Name Dose Route Start Last Admin Trade Name Freq PRN Reason Stop Dose Admin Metoclopramide HCl 7.5 mg 03/26/19 01:39 03/26/19 01:55 Reglan IVPUSH 03/26/19 01:40 7.5 mg ONETIME ONE Administration Metoclopramide HCl 10 mg 03/26/19 03:19 Reglan PO 03/26/19 03:20 ONETIME ONE - Radiology Interpretation Free Text/Narrative:: 23-year-old female presents to the ED with nonspecific symptoms of flu. [place] nauseated febrile and chills. This started within the last 24 hours. She has not vomited appetite has been poor. Had one loose diarrhea stool. Small volume of blood noted. Early menstruating. Is on oral contraceptive. Has been traveling recently back from [place]. Therefore the possibility of foodborne illness exist but not until she knows is sick. Examination is benign. Plan IV D5 normal saline at open. Given Reglan 7.5 mg IV as she is allergic to Zofran. Labs and urinalysis to be performed. - Re-Assessments/Exams Free Text/Narrative Re-Assessment/Exam: 03/26/19 02:59 Labs reveal a normal white count at 8.41. Differential is 57% neutrophils no bands. Hemoglobin is 14.5 with hematocrit of 42.4. Blood count 288,000. Sodium 142 potassium slightly low at 3.2. Chloride 104 the bicarbonate 25. Anion gap is mildly elevated at 16.2. B1 is 5 with a creatinine of 0.9. GFR remains greater than 60. Glucose is 111 with a calcium of 9.2.. Liver function normal. C-reactive protein less than 0.2. Amylase is 46. Urinalysis contains 3+ occult blood and negative leukocyte esterase. Patient is currently menstruating quite heavily. 03/26/19 03:15 microanalysis of the urine shows greater than 100 red blood cells per hpf but no white cells and few bacteria. The patient is feeling improved. Will discharge home with a prescription for Phenergan tablets to be used every 6 hours for nausea relief. Clear fluid diet for the next 24 hours. Departure - Departure Time of Disposition: 03:19 Disposition: Home, Self-Care 01 Condition: Fair Clinical Impression: Viral gastroenteritis - Discharge Information *PRESCRIPTION DRUG MONITORING PROGRAM REVIEWED*: Not Applicable *COPY OF PRESCRIPTION DRUG MONITORING REPORT IN PATIENT LETICIA: Not Applicable Prescriptions: Promethazine [Phenergan] 25 mg PO Q6H PRN #6 tab PRN Reason: Nausea relief Instructions: Viral Gastroenteritis, Adult, [id number] Referrals: Sherry Rangel NP [Primary Care Provider] - Forms: ED Department Discharge Additional Instructions: Evaluation the emergency room this morning in regards to acute onset of generalized illness with nausea and one loose diarrhea stool earlier in the day. Lab work did not show any active signs of bacterial infection. Urinalysis also proved to be free of any infection. You were treated with a liter of IV fluids and Reglan 7.5 mg IV for nausea relief. Suggest treatment at home to be Gatorade/Powerade to maintain hydration. I did discharge her with a Reglan 10 mg tablet to be taken after 8:00 this morning for further nausea relief. Prescription written for Phenergan tablets one 5 mm be taken every 6 hours as needed for nausea relief. Most of the nausea vomiting part of the flu that's been going around is been lasting about 24 hours. Suggest no dairy products apple juice or grape juice until you know for sure you're not going to develop significant diarrhea. He will notice within the next 12-24 hours. - My Orders Last 24 Hours: My Active Orders 03/26/19 01:45 Dextrose 5%-0.9% NaCl [Dextrose 5%-Normal Saline] 1,000 ml IV ASDIRECTED - Assessment/Plan Last 24 Hours: My Active Orders 03/26/19 01:45 Dextrose 5%-0.9% NaCl [Dextrose 5%-Normal Saline] 1,000 ml IV ASDIRECTED
[2019-03-26] MEDS ORDERED: Dextrose 5%-0.9% NaCl 1,000 ML IV SCH (01:45)
[2019-03-26] MEDS ORDERED: Metoclopramide 10 MG Tab PO ONE (03:19)
== END 2019-03-26 03:32 | disposition home or self-care (01) ==
LOC: JD.ED 01:01
DX: A08.4 Viral intestinal infection, unspecified (principal); Z79.899 Other long term (current) drug therapy; Z88.8 Allergy status to other drugs, medicaments and biological substances
CPT/HCPCS: 36415; 80053; 81001; 81025; 82150; 85007; 85027; 86140; 96361; 96374; 99284; A9270; J2765; J7042

== ENCOUNTER 2019-09-02 00:18 | Emergency (ER) | payer MEDICAID ==
[2019-09-02 00:30] VITALS: BP 136/91; PULSE 83
--- NOTE | 2019-09-02 01:06 | EDM.PDOC ---
ED HPI GENERAL MEDICAL PROBLEM - General Chief Complaint: General Stated Complaint: DIZZY AND SHAKY FELLS LIKE SHE IS GOING TO PASS OU Time Seen by Provider: 09/02/19 00:47 Source of Information: Reports: Patient History Limitations: Reports: No Limitations - History of Present Illness INITIAL COMMENTS - FREE TEXT/NARRATIVE: This is a 24-year-old female. For the last 7 days she's been having a cough and wheezing and a sore throat and lots of sinus drainage. She's also been feeling somewhat shaky and dizzy though she is not passed out and has not fallen down. She does have a history of asthma she's been using her inhaler though she is running out of her inhaler. She denies any fever or chills that have been documented. She comes to the ER because of the symptoms. She has been drinking water and Gatorade but she has not been able to sleep or rest for a well. She denies any other acute symptoms. - Related Data Allergies Allergy/AdvReac Type Severity Reaction Status Date / Time ondansetron Allergy Hives Verified 03/26/19 01:19 Home Meds: Home Meds Albuterol [Proventil HFA] 2 puff INH ASDIRECTED PRN 07/19/15 [History] Control. 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 Denies: Fever, Chills HEENT: Reports: Sinus Problem, Throat Pain Respiratory: Reports: Shortness of Breath, Wheezing, Cough Cardiovascular: Reports: No Symptoms Endocrine: Reports: No Symptoms GI/Abdominal: Reports: No Symptoms : Reports: No Symptoms Musculoskeletal: Reports: No Symptoms Skin: Reports: No Symptoms Neurological: Reports: No Symptoms Psychiatric: Reports: No Symptoms Hematologic/Lymphatic: Reports: No Symptoms ED EXAM, GENERAL - Physical Exam Exam: See Below Exam Limited By: No Limitations General Appearance: Alert, WD/WN, No Apparent Distress Eye Exam: Bilateral Eye: Normal Inspection Ears: Normal External Exam, Normal Canal, Normal TMs Nose: Normal Inspection Throat/Mouth: Normal Inspection, Normal Lips, Normal Voice, No Airway Compromise. No: Inflammation Head: Normocephalic Neck: Supple Respiratory/Chest: No Respiratory Distress, Lungs Clear, Normal Breath Sounds. No: Crackles, Rhonchi, Wheezing Cardiovascular: Regular Rate, Rhythm, No Murmur Back Exam: Full Range of Motion Extremities: Normal Inspection, Normal Range of Motion Neurological: Alert, Oriented Psychiatric: Normal Affect, Normal Mood Skin Exam: Warm, Dry Course - Vital Signs Last Recorded V/S: Last Vital Signs Temp 97.2 F 09/02/19 00:27 Pulse 83 09/02/19 00:27 Resp 16 09/02/19 00:27 BP 136/91 H 09/02/19 00:27 Pulse Ox 99 09/02/19 00:27 Departure - Departure Time of Disposition: 01:02 Disposition: Home, Self-Care 01 Condition: Fair Clinical Impression: Upper respiratory infection Qualifiers: URI type: unspecified URI Qualified Code(s): J06.9 - Acute upper respiratory infection, unspecified Exacerbation of asthma Qualifiers: Asthma severity: mild Asthma persistence: intermittent Qualified Code(s): J45.21 - Mild intermittent asthma with (acute) exacerbation - Discharge Information *PRESCRIPTION DRUG MONITORING PROGRAM REVIEWED*: Not Applicable *COPY OF PRESCRIPTION DRUG MONITORING REPORT IN PATIENT LETICIA: Not Applicable Prescriptions: Albuterol Sulfate [Albuterol Sulfate Hfa] 2 puff IH Q6H PRN #1 hfa.aer.ad PRN Reason: Wheezing Azithromycin [Zithromax] 250 mg PO DAILY #6 tab Instructions: Upper Respiratory Infection, Adult, [id number] Referrals: Sherry Rangel NP [Primary Care Provider] - Forms: ED Department Discharge, ED Return to Work/School Form Additional Instructions: Continue to drink lots of water and avoid sugar, start the antibiotics tomorrow when you get them from the pharmacy, use the inhaler as needed for your wheezing , if you develop a fever take Tylenol or ibuprofen, sleep as much as you possibe so your body can repair itself and fight the infection, follow-up with your family doctor later this week for recheck or return to the ER if needed
== END 2019-09-02 01:20 | disposition home or self-care (01) ==
LOC: JD.ED 00:18
DX: J06.9 Acute upper respiratory infection, unspecified (principal); J45.21 Mild intermittent asthma with (acute) exacerbation; Z88.8 Allergy status to other drugs, medicaments and biological substances; Z79.899 Other long term (current) drug therapy
CPT/HCPCS: 99283

== ENCOUNTER 2019-09-14 22:34 | Emergency (ER) | payer MEDICAID ==
[2019-09-14 22:45] VITALS: BP 132/80; PULSE 85
--- NOTE | 2019-09-14 22:58 | EDM.PDOC ---
ED HPI GENERAL MEDICAL PROBLEM - General Chief Complaint: Back Pain or Injury Stated Complaint: tailbone pain Time Seen by Provider: 09/14/19 22:36 Source of Information: Reports: Patient History Limitations: Reports: No Limitations - History of Present Illness INITIAL COMMENTS - FREE TEXT/NARRATIVE: This is a 24-year-old female. On Tuesday she apparently slipped on the ice and fell landing on her right buttocks. Since that time she's been having more and more pain in her right pelvis area posteriorly and pain that seems to run down her right leg into the top of her foot. She says when she tries to put weight on her right leg she gets sharp pain in her lower back and pelvis area. If she is lying there she has numbness and tingling in her leg and down to her foot. Occasionally she gets some sharp pain that runs down her right leg especially if she is trying to bear weight on that right leg. She denies any other symptoms she did not fall backwards and hit her head. When she walks she obviously limps on that right side. Right Back Pain Score (Numeric/FACES): 9 - Related Data Allergies Allergy/AdvReac Type Severity Reaction Status Date / Time ondansetron Allergy Hives Verified 09/14/19 22:45 Home Meds: Home Meds Control. 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 Psychiatric History: Reports: Anxiety, Depression - Infectious Disease History Infectious Disease History: Reports: None - Past Surgical History HEENT Surgical History: Reports: Tonsillectomy Female Surgical History: Reports: Section Social & Family History - Family History Family Medical History: Noncontributory - Caffeine Use Caffeine Use: Reports: Coffee, Energy Drinks, Soda, Tea - Recreational Drug Use Recreational Drug Use: No - Living Situation & Occupation Living situation: Reports: Single, with Family ED ROS GENERAL - Review of Systems Review Of Systems: See Below Constitutional: Denies: Fever, Chills HEENT: Reports: No Symptoms Respiratory: Reports: No Symptoms Cardiovascular: Reports: No Symptoms Endocrine: Reports: No Symptoms GI/Abdominal: Reports: No Symptoms : Reports: No Symptoms Musculoskeletal: Reports: Back Pain, Other (Pelvis pain) Skin: Reports: No Symptoms Neurological: Reports: Numbness, Tingling Psychiatric: Reports: No Symptoms ED EXAM,LOWER BACK PAIN/INJURY - Physical Exam Exam: See Below Exam Limited By: No Limitations General Appearance: Alert, WD/WN, No Apparent Distress Eye Exam: Bilateral Eye: Normal Inspection Ears: Normal External Exam Nose: Normal Inspection Throat/Mouth: Normal Inspection, Normal Lips, Normal Voice, No Airway Compromise Head: Normocephalic Neck: Supple Respiratory/Chest: No Respiratory Distress Back Exam: Other (Patient has minimal tenderness in the lumbar spinal palpation though she does have some mild paraspinal muscle tenderness but no midline spine pain. She is very tender over the right SI joint on palpation, the coccyx is not particularly tender, palpation of the right hip is not particularly tender. She is able to roll on her side without much discomfort though when she stands and put weight on that right leg she does have some discomfort in her lower back and right SI joint. The pain seems to run down her leg and does not discretely follow a dermatome though it could be L4-L5.) Extremities: Normal Inspection, Normal Range of Motion Neurological: Alert, Normal Mood/Affect, Other (Neurologically she complains of numbness and tingling down her right leg into the top of her foot however she does have sensation to touch and pain and palpation despite the paresthesias. She denies any change in bowel or bladder function denies any saddle anesthesia. ) Psychiatric: Normal Affect, Normal Mood Skin Exam: Warm, Dry Course - Vital Signs Last Recorded V/S: Last Vital Signs Temp 97.8 F 09/14/19 22:41 Pulse 85 09/14/19 22:41 Resp 14 09/14/19 22:41 BP 132/80 09/14/19 22:41 Pulse Ox 98 09/14/19 22:41 - Orders/Labs/Meds Orders: Active Orders 24 hr Category Date Time Status Lumbar Spine 2 or 3V [CR] Stat Exams 09/14/19 22:52 Taken Pelvis 1V or 2V [CR] Stat Exams 09/14/19 22:52 Taken - Radiology Interpretation Free Text/Narrative:: X-rays of lumbar spine do not show any acute fractures X-ray of the pelvis I do not see any acute fractures or some strange striations in the right hip they do not appear to be fractures - Re-Assessments/Exams Free Text/Narrative Re-Assessment/Exam: 09/14/19 23:16 I spoke to the patient regarding the results of the x-rays. I am going to give her a shot of Toradol and put her on some muscle relaxers and meloxicam. She needs to follow-up with her family doctor for additional evaluation and possible physical therapy and if that does not resolve that she might need an MRI. 09/14/19 23:29 I did indicate to the patient that the radiologist reads these films and if they find anything different than what I'm saying and we will give her a call. She understands. Departure - Departure Time of Disposition: 23:24 Disposition: Home, Self-Care 01 Condition: Fair Clinical Impression: Pain of right sacroiliac joint, Sciatica, right side Lumbar sprain Qualifiers: Encounter type: initial encounter Qualified Code(s): S33.5XXA - Sprain of ligaments of lumbar spine, initial encounter - Discharge Information *PRESCRIPTION DRUG MONITORING PROGRAM REVIEWED*: Not Applicable *COPY OF PRESCRIPTION DRUG MONITORING REPORT IN PATIENT LETICIA: Not Applicable Prescriptions: Cyclobenzaprine [Flexeril] 10 mg PO TID PRN #20 tab PRN Reason: Spasms Meloxicam [Mobic] 15 mg PO DAILY #12 tab Instructions: Sciatica, [id number], Sacroiliac Joint Dysfunction Referrals: Sherry Rangel NP [Primary Care Provider] - Forms: ED Department Discharge Additional Instructions: Use the crutches when up and trying to get around and be very careful, take the muscle relaxers for the tightness in your lower back, use the meloxicam and take it every morning with food to help with the pain and the inflammation, you need to follow up with your family doctor this coming week for recheck and possibly physical therapy or chiropractic therapy for the right sacroiliac joint and your lower back, return to the ER as needed - My Orders Last 24 Hours: My Active Orders 09/14/19 22:52 Lumbar Spine 2 or 3V [CR] Stat Pelvis 1V or 2V [CR] Stat - Assessment/Plan Last 24 Hours: My Active Orders 09/14/19 22:52 Lumbar Spine 2 or 3V [CR] Stat Pelvis 1V or 2V [CR] Stat
[2019-09-14] MEDS ORDERED: Ketorolac 60 MG/2 ML SDV IM ONE (23:24)
--- NOTE | 2019-09-15 11:31 | CR ---
Lumbar spine: AP, lateral and cone-down lateral views centered to the lumbosacral junction were obtained. Comparison: No prior lumbar spine imaging. Vertebral body heights and disc spaces are preserved. Pedicles as well as transverse and spinous processes are intact. No subluxation or fracture is seen. Impression: 1. No abnormality is appreciated on three-view lumbar spine exam. Diagnostic code #1
--- NOTE | 2019-09-15 11:31 | CR ---
Pelvis: AP view of the pelvis was obtained. Comparison: No prior pelvis exam is available. Joint spaces within both hips are maintained. Sacroiliac joints are within normal limits. No fracture or other bony abnormality is identified. Impression: 1. No abnormality is seen on AP pelvis exam. Diagnostic code #1
== END 2019-09-14 23:40 | disposition home or self-care (01) ==
LOC: JD.ED 22:34
DX: S33.5XXA Sprain of ligaments of lumbar spine, initial encounter (principal); M53.3 Sacrococcygeal disorders, not elsewhere classified; M54.41 Lumbago with sciatica, right side; J45.909 Unspecified asthma, uncomplicated; Z88.8 Allergy status to other drugs, medicaments and biological substances; W00.0XXA Fall on same level due to ice and snow, initial encounter; Y92.009 Unspecified place in unspecified non-institutional (private) residence as the place of occurrence of the external cause
CPT/HCPCS: 72100; 72170; 96372; 99284; J1885; 99283

== ENCOUNTER 2019-10-15 04:12 | Emergency (ER) | payer MEDICAID ==
[2019-10-15 04:27] VITALS: BP 136/97; PULSE 112
--- NOTE | 2019-10-15 04:53 | EDM.PDOC ---
ED HPI GENERAL MEDICAL PROBLEM - General Chief Complaint: Fever Stated Complaint: FEVER EAR PAIN DIZZY Time Seen by Provider: 10/15/19 04:25 Source of Information: Reports: Patient, Significant Other (Boyfriend) - History of Present Illness INITIAL COMMENTS - FREE TEXT/NARRATIVE: Ms. Wright is a very pleasant 24-year-old woman with a past medical history significant for untreated anxiety and depression, who states that she developed a fever, bilateral ear pain, lightheadedness one febrile, nausea without emesis when lightheaded, difficulty sleeping, generalized body aches, a throat "on fire ", and a dry cough, yesterday morning, 10/14/2019. She reports a Tmax of 102, which she has been treating by alternating Tylenol and ibuprofen. She is afebrile here in the ED. She denies prior similar symptoms. Other than the affirmation symptoms, the patient denies recent chest pain, palpitations, constipation, diarrhea, abdominal pain, urinary symptoms, recent weight gain or weight loss, recent bloody bowel movements or black bowel movements, recent headaches, or rashes. The patient's PCP is Sherry Rangel NP. She did receive an influenza vaccine this season. 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: Psychiatric History: Reports: Anxiety (untreated), Depression (untreated) Endocrine/Metabolic History: Reports: Obesity/BMI 30+ - Past Surgical History HEENT Surgical History: Reports: Tonsillectomy Female Surgical History: Reports: Section (x 1) Social & Family History - Family History Family Medical History: Noncontributory - Tobacco Use Smoking Status *Q: Current Some Day Smoker Tobacco Use Within Last Twelve Months: Vaping (nicotine, occasionally) Years of Tobacco use: 3 Packs/Tins Daily: 0.1 - Caffeine Use Caffeine Use: Reports: None - Alcohol Use Alcohol Use History: Yes Alcohol Use Frequency: Socially - Recreational Drug Use Recreational Drug Use: No - Living Situation & Occupation Living situation: Reports: Single, with Family Occupation: Employed ([employer]) ED ROS GENERAL - Review of Systems Review Of Systems: Comprehensive ROS is negative, except as noted in HPI. ED EXAM, GENERAL - Physical Exam Exam: See Below Exam Limited By: No Limitations General Appearance: Alert, WD/WN, No Apparent Distress Eye Exam: Bilateral Eye: EOMI, Normal Inspection Ears: Normal External Exam, Normal Canal, Hearing Grossly Normal, Other ( Bilateral bulging TM, but no erythema, bubbles, or purulence) Nose: Normal Inspection, Normal Mucosa, No Blood Throat/Mouth: Normal Inspection, Normal Lips, Normal Teeth, Normal Gums, Normal Oropharynx, Normal Voice, No Airway Compromise Head: Atraumatic, Normocephalic Neck: Normal Inspection, Supple, Non-Tender, Full Range of Motion. No: Lymphadenopathy (L), Lymphadenopathy (R) Respiratory/Chest: No Respiratory Distress, Lungs Clear, Normal Breath Sounds, No Accessory Muscle Use. No: Decreased Breath Sounds, Crackles, Rhonchi, Wheezing, Stridor, Prolonged Expiration Cardiovascular: Normal Peripheral Pulses, No Gallop, No JVD, No Murmur, No Rub, Tachycardia (regular) Peripheral Pulses: 4+: Radial (L), Radial (R) GI/Abdominal: Normal Bowel Sounds, Soft, Non-Tender, No Organomegaly, No Distention, No Abnormal Bruit, No Mass (Female) Exam: Deferred Rectal (Female) Exam: Deferred Back Exam: Normal Inspection, Full Range of Motion, NT Extremities: Normal Inspection, Normal Range of Motion, No Pedal Edema, Normal Capillary Refill Neurological: Alert, Oriented, Normal Cognition, No Motor/Sensory Deficits Psychiatric: Normal Affect Skin Exam: Warm, Dry, Intact, Normal Color, No Rash Course - Vital Signs Last Recorded V/S: Last Vital Signs Temp 37.1 C 10/15/19 04:24 Pulse 112 H 10/15/19 04:24 Resp 16 10/15/19 04:24 BP 136/97 H 10/15/19 04:24 Pulse Ox 96 10/15/19 04:24 Orthostatic Blood Pressure [ 143/86 Standing] Orthostatic Blood Pressure [ 135/81 Supine] - Orders/Labs/Meds Orders: Active Orders 24 hr Category Date Time Status Influenza Vaccine Charge [RC] .DISCHARGE Care 10/15/19 04:46 Inactive Orthostatic Vital Signs [RC] STAT Care 10/15/19 04:44 Active Chest 2V [CR] Stat Exams 10/15/19 04:45 Taken CULTURE STREP A CONFIRMATION [RM] Stat Lab 10/15/19 04:41 Results STREP SCRN A RAPID W CULT CONF [RM] Stat Lab 10/15/19 04:41 Results - Re-Assessments/Exams Free Text/Narrative Re-Assessment/Exam: 10/15/19 04:46 The patient reports that she has had a fever up to 102, and while she is afebrile here, she actually feels febrile on examination. I think it is likely that she has influenza. I have ordered an influenza swab. I think pneumonia is unlikely, but I have ordered a chest x-ray to be certain. Because of her report of feeling lightheaded, I have ordered orthostatics. She thinks she had a tonsillectomy as a small child, and I do not see tonsils on examination, however , I nevertheless swabbed the area where her tonsils would be to rule out strep throat. 10/15/19 04:54 The patient initially told me that she had not received an influenza vaccine this season, and even agreed to receive one here, however, she is now telling the nurse that she did in fact receive an influenza vaccine about 3 months ago. This reduces, although does not eliminate, the possibility that her current symptoms are due to influenza. The patient is not orthostatic. Her tachycardia is likely secondary to a fever. 10/15/19 05:13 2-view chest radiograph appears to be grossly normal. The cardiac silhouette is within normal limits. No pulmonary vascular congestion. No pleural effusions. No focal infiltrate. No pneumothorax. Formal read per the Radiologist pending. 10/15/19 05:32 The patient's rapid strep test is negative. Her influenza swab is negative. While the patient's influenza swab is negative, the sensitivity of the test may be as low as 50-70%, therefore a negative test does not mean that the patient does not actually have influenza. Since her symptoms began about 24 hours ago, she is still well within the window of opportunity to treat with Tamiflu. 10/15/19 05:41 The above was discussed with the patient and her boyfriend. She agreed to start on Tamiflu, and I will submit a prescription to complete a 5-day course. I will discharge the patient home with a note for work. Departure - Departure Time of Disposition: 05:42 Disposition: Home, Self-Care 01 Condition: Good Clinical Impression: Influenza - Discharge Information *PRESCRIPTION DRUG MONITORING PROGRAM REVIEWED*: Not Applicable *COPY OF PRESCRIPTION DRUG MONITORING REPORT IN PATIENT LETICIA: Not Applicable Referrals: Sherry Rangel NP [Primary Care Provider] - Forms: ED Department Discharge, ED Return to Work/School Form Additional Instructions: You were seen in the emergency room for a fever, ear pain, lightheadedness, nausea, difficulty sleeping, body aches, sore throat, and a dry cough. Workup in the ER included an influenza swab, a rapid strep test, a chest x-ray, and positional blood pressure checks. Your entire workup was negative. You do not have strep throat or pneumonia, and are not dehydrated. Your influenza swab returned negative, however, as discussed, that does not necessarily mean that you don't have influenza. Clinically, you do. You have been started on the anti-influenza medicine Tamiflu, and a prescription for Tamiflu has been sent to the [facility] located in the [facility] grocery store. Take one tablet of Tamiflu every 12 hours, starting this evening, Tuesday, 2018, as prescribed. Be sure to finish the entire prescription. In addition to Tamiflu, you may also take [id number] Tylenol as needed for discomfort of fever, however, as discussed, current guidelines do not recommend the routine treatment of fever. Make sure that you stay adequately hydrated. Since you don't have diarrhea, it does not really matter what type of fluid you drink. A note for work has been provided to you. If your symptoms persist to the end of this week, please follow-up with your PCP, Sherry Rangel NP, to obtain an additional note for work. If any other problems, please do not hesitate to return to the ER. - My Orders Last 24 Hours: My Active Orders 10/15/19 04:41 CULTURE STREP A CONFIRMATION [RM] Stat STREP SCRN A RAPID W CULT CONF [RM] Stat 10/15/19 04:44 Orthostatic Vital Signs [RC] STAT 10/15/19 04:45 Chest 2V [CR] Stat 10/15/19 04:46 Influenza Vaccine Charge [RC] .DISCHARGE - Assessment/Plan Last 24 Hours: My Active Orders 10/15/19 04:41 CULTURE STREP A CONFIRMATION [RM] Stat STREP SCRN A RAPID W CULT CONF [RM] Stat 10/15/19 04:44 Orthostatic Vital Signs [RC] STAT 10/15/19 04:45 Chest 2V [CR] Stat 10/15/19 04:46 Influenza Vaccine Charge [RC] .DISCHARGE
[2019-10-15] MEDS ORDERED: Oseltamivir 75 MG Cap PO ONE (05:41)
--- NOTE | 2019-10-15 09:19 | CR ---
Chest: Two views of the chest were obtained. Comparison: Previous chest x-ray of 07/19/15. Heart size and mediastinum are normal. Lungs are clear. Bony structures are unremarkable. Impression: 1. Nothing acute is seen on two-view chest x-ray. Diagnostic code #1 This report was dictated in [place] Standard Time
== END 2019-10-15 06:00 | disposition home or self-care (01) ==
LOC: JD.ED 04:12
DX: J11.1 Influenza due to unidentified influenza virus with other respiratory manifestations (principal); J45.909 Unspecified asthma, uncomplicated; E66.9 Obesity, unspecified; F17.210 Nicotine dependence, cigarettes, uncomplicated; Z68.33 Body mass index [BMI] 33.0-33.9, adult; Z88.8 Allergy status to other drugs, medicaments and biological substances; Z79.899 Other long term (current) drug therapy
CPT/HCPCS: 71046; 87081; 87430; 87804; 99284; A9270; 99282

== ENCOUNTER 2019-11-30 21:39 | Emergency (ER) | payer MEDICAID ==
[2019-11-30 21:50] VITALS: BP 136/72; PULSE 62
--- NOTE | 2019-11-30 21:51 | EDM.PDOC ---
ED HPI GENERAL MEDICAL PROBLEM - General Chief Complaint: Upper Extremity Injury/Pain Stated Complaint: elbow injury Time Seen by Provider: 11/30/19 21:48 Source of Information: Reports: Patient History Limitations: Reports: No Limitations - History of Present Illness INITIAL COMMENTS - FREE TEXT/NARRATIVE: Patient is an unfortunate 24-year-old female who presents emergency Department today with complaint of left elbow pain. Patient reports she was in her normal state of health until approximately 20 minutes prior to arrival when she slipped on some ice and fell onto her left elbow. This caused pain and swelling to her left elbow patient reports pain is worse with range of motion or palpation improves with rest does not alleviate. Distal neurovascular is intact Left Elbow Pain Score (Numeric/FACES): 8 - Related Data Allergies Allergy/AdvReac Type Severity Reaction Status Date / Time ondansetron Allergy Hives Verified 11/30/19 21:50 Home Meds: Home Meds Albuterol Sulfate [Albuterol Sulfate Hfa] 2 puff IH Q6H PRN #1 hfa.aer.ad [Rx] Norgestrel-Ethinyl Estradiol [Elinest-28 Tablet] 1 each PO DAILY 10/15/19 [ History] Acetaminophen with Codeine [Tylenol with Codeine #3 Tablet] 1 each PO Q4H PRN # 12 tablet 11/30/19 [Rx] Benzonatate [Tessalon Perle] 100 mg PO BID PRN 11/30/19 [History] Past Medical History - Past Health History Medical/Surgical History: Denies Medical/Surgical History HEENT History: Reports: Impaired Vision Cardiovascular History: Reports: None Respiratory History: Reports: Asthma (suspeted, not tested) Gastrointestinal History: Reports: None 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 Musculoskeletal History: Reports: None Neurological History: Reports: None Psychiatric History: Reports: Anxiety (untreated), Depression (untreated) Endocrine/Metabolic History: Reports: Obesity/BMI 30+ Hematologic History: Reports: None Oncologic (Cancer) History: Reports: None Dermatologic History: Reports: None - Infectious Disease History Infectious Disease History: Reports: None - Past Surgical History HEENT Surgical History: Reports: Tonsillectomy Female Surgical History: Reports: Section (x 1) Social & Family History - Family History Family Medical History: Noncontributory - Caffeine Use Caffeine Use: Reports: None - Living Situation & Occupation Living situation: Reports: Single, with Family Occupation: Employed ([employer]) Review of Systems - Review of Systems Review Of Systems: See Below Constitutional: Denies: Chills, Fever Musculoskeletal: Reports: Joint Pain ED EXAM, GENERAL - Physical Exam Exam: See Below Exam Limited By: No Limitations General Appearance: Alert, WD/WN, Mild Distress Throat/Mouth: Other (Diffuse caries multiple missing teeth) Respiratory/Chest: No Respiratory Distress, Lungs Clear, Normal Breath Sounds, No Accessory Muscle Use, Chest Non-Tender Cardiovascular: Normal Peripheral Pulses, Regular Rate, Rhythm, No Edema, No Gallop, No JVD, No Murmur, No Rub Back Exam: Normal Inspection, Full Range of Motion, NT Extremities: Other (Tenderness and mild swelling to left olecranon process, distal neurovascular is intact) Neurological: Alert Skin Exam: Warm, Dry Course - Vital Signs Last Recorded V/S: Last Vital Signs Temp 97.7 F 11/30/19 21:47 Pulse 62 11/30/19 21:47 Resp 16 11/30/19 21:47 BP 136/72 11/30/19 21:47 Pulse Ox 97 11/30/19 21:47 - Orders/Labs/Meds Orders: Active Orders 24 hr Category Date Time Status Elbow Min 3V Lt [CR] Stat Exams 11/30/19 21:50 Ordered OLYA Bandage [Elastic Wrap] [OM.PC] Routine Oth 11/30/19 22:04 Ordered - Re-Assessments/Exams Free Text/Narrative Re-Assessment/Exam: 11/30/19 22:04 Left elbow interpreted by me NAD Departure - Departure Time of Disposition: 22:05 Disposition: Home, Self-Care 01 Clinical Impression: Left elbow contusion Qualifiers: Encounter type: initial encounter Qualified Code(s): S50.02XA - Contusion of left elbow, initial encounter - Discharge Information *PRESCRIPTION DRUG MONITORING PROGRAM REVIEWED*: Yes *COPY OF PRESCRIPTION DRUG MONITORING REPORT IN PATIENT LETICIA: No Prescriptions: Acetaminophen with Codeine [Tylenol with Codeine #3 Tablet] 1 each PO Q4H PRN # 12 tablet PRN Reason: Pain Referrals: Sherry Rangel NP [Primary Care Provider] - Forms: ED Department Discharge Additional Instructions: Home, rest, ice, elevate, return as needed for worsening condition Sepsis Event Note - Evaluation Sepsis Screening Result: No Definite Risk - Focused Exam Vital Signs: Vital Signs Temp Pulse Resp BP Pulse Ox 11/30/19 21:47 97.7 F 62 16 136/72 97 Date Exam was Performed: 11/30/19 Time Exam was Performed: 22:04 - My Orders Last 24 Hours: My Active Orders 11/30/19 21:50 Elbow Min 3V Lt [CR] Stat 11/30/19 22:04 OLYA Bandage [Elastic Wrap] [OM.PC] Routine - Assessment/Plan Last 24 Hours: My Active Orders 11/30/19 21:50 Elbow Min 3V Lt [CR] Stat 11/30/19 22:04 OLYA Bandage [Elastic Wrap] [OM.PC] Routine
--- NOTE | 2019-12-01 13:22 | CR ---
Left elbow: 4 views of the left elbow were obtained. Comparison: No prior elbow study. Joint spaces are preserved. No joint effusion is seen. No fracture or other bony abnormality is identified. Impression: 1. No abnormality is identified 4 view left elbow study. Diagnostic code #1 Study was dictated in [place] Standard Time
== END 2019-11-30 22:10 | disposition home or self-care (01) ==
LOC: JD.ED 21:39
DX: S50.02XA Contusion of left elbow, initial encounter (principal); E66.9 Obesity, unspecified; J45.909 Unspecified asthma, uncomplicated; Z88.8 Allergy status to other drugs, medicaments and biological substances; Z79.899 Other long term (current) drug therapy; W00.0XXA Fall on same level due to ice and snow, initial encounter
CPT/HCPCS: 73080-26-LT; 73080-LT; 99283; 99283-25

== ENCOUNTER 2020-01-14 12:02 | Emergency (ER) | payer OTHER, MEDICAID ==
[2020-01-14 12:15] VITALS: BP 120/66; PULSE 76
--- NOTE | 2020-01-14 13:55 | EDM.PDOC ---
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 States her last menstrual period was December 09 but that it was shorter than normal. She was 6 days late on her period so she took a home test which was positive. States that she has had some mild nausea and has been "more mishra "than normal. This would be her second . Her first ended in a healthy . Patient states that she had an appointment in the clinic at 2:00 today, however, she did not want a wait that long to have the testing done. - Related Data Allergies Allergy/AdvReac Type Severity Reaction Status Date / Time ondansetron Allergy Hives Verified 01/14/20 12:15 Home Meds: Home Meds Albuterol Sulfate [Albuterol Sulfate Hfa] 2 puff IH Q6H PRN #1 [id number] [Rx] Norgestrel-Ethinyl Estradiol [Elinest-28 Tablet] 1 each PO DAILY 10/15/19 [ History] Montelukast Sodium [Singulair] 10 mg PO DAILY 01/14/20 [History] Past Medical History - Past Health History Medical/Surgical History: Denies Medical/Surgical History HEENT History: Reports: Impaired Vision Cardiovascular History: Reports: None Respiratory History: Reports: Asthma Gastrointestinal History: Reports: None 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 Musculoskeletal History: Reports: None Neurological History: Reports: None Psychiatric History: Reports: Anxiety, Depression Endocrine/Metabolic History: Reports: Obesity/BMI 30+ Hematologic History: Reports: None Immunologic History: Reports: None Oncologic (Cancer) History: Reports: None Dermatologic History: Reports: None - Infectious Disease History Infectious Disease History: Reports: None - Past Surgical History HEENT Surgical History: Reports: Tonsillectomy Female Surgical History: Reports: Section Social & Family History - Family History Family Medical History: Noncontributory - Tobacco Use Smoking Status *Q: Never Smoker Second Hand Smoke Exposure: No - Caffeine Use Caffeine Use: Reports: None - Recreational Drug Use Recreational Drug Use: No - Living Situation & Occupation Living situation: Reports: Single, with Family Occupation: Employed ([employer] Get [employer] For) ED ROS GENERAL - Review of Systems Review Of Systems: Comprehensive ROS is negative, except as noted in HPI. ED EXAM - Physical Exam Exam: See Below Exam Limited By: No Limitations General Appearance: Alert, WD/WN, No Apparent Distress Respiratory/Chest: No Respiratory Distress, Lungs Clear, Normal Breath Sounds, No Accessory Muscle Use, Chest Non-Tender Cardiovascular: Normal Peripheral Pulses, Regular Rate, Rhythm, No Edema, No Gallop, No JVD, No Murmur, No Rub Neurological: Alert, Oriented, CN II-XII Intact, Normal Cognition, Normal Gait, Normal Reflexes, No Motor/Sensory Deficits Psychiatric: Normal Affect, Normal Mood Skin Exam: Warm, Dry, Intact, Normal Color, No Rash Course - Vital Signs Last Recorded V/S: Last Vital Signs Temp 97.4 F 01/14/20 12:13 Pulse 76 01/14/20 12:13 Resp 16 01/14/20 12:13 BP 120/66 01/14/20 12:13 Pulse Ox 100 01/14/20 12:13 - Orders/Labs/Meds Labs: Laboratory Tests 01/14/20 Range/Units 12:30 HCG, Qual Positive H (NEGATIVE) Departure - Departure Time of Disposition: 13:52 Disposition: Home, Self-Care 01 Condition: Good Clinical Impression: Qualifiers: Weeks of gestation: less than 8 weeks Qualified Code(s): Z3A.01 - Less than 8 weeks gestation of - Discharge Information *PRESCRIPTION DRUG MONITORING PROGRAM REVIEWED*: No *COPY OF PRESCRIPTION DRUG MONITORING REPORT IN PATIENT LETICIA: No Instructions: First Trimester of , [id number] Referrals: Sherry Rangel NP [Primary Care Provider] - Forms: ED Department Discharge Additional Instructions: You were seen in the emergency department today with request to have a blood test done. This was completed and was positive. Recommend that you call to schedule an appointment with an INTELLIGENCE MANAGER provider. Also recommend that you start taking a daily vitamin. If you should experience any symptoms of concern, please do not hesitate to return to the emergency department. Sepsis Event Note - Evaluation Sepsis Screening Result: No Definite Risk - Focused Exam Vital Signs: Vital Signs Temp Pulse Resp BP Pulse Ox 03/09/20 12:13 97.4 F 76 16 120/66 100 Date Exam was Performed: 01/14/20 Time Exam was Performed: 19:42
== END 2020-01-14 14:17 | disposition home or self-care (01) ==
LOC: JD.ED 12:02
DX: Z32.01 Encounter for pregnancy test, result positive (principal); Z3A.01 Less than 8 weeks gestation of pregnancy; O99.211 Obesity complicating pregnancy, first trimester; E66.9 Obesity, unspecified; Z68.33 Body mass index [BMI] 33.0-33.9, adult
CPT/HCPCS: 36415; 84703; 99282; 99283

== ENCOUNTER 2020-01-19 10:33 | Emergency (ER) | payer MEDICAID, OTHER ==
[2020-01-19 10:47] VITALS: BP 123/68; PULSE 65
--- NOTE | 2020-01-19 11:20 | EDM.PDOC ---
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 Patient is 5 weeks . She has not had any cramping or pain associated with this. Denies any associated nausea vomiting or diarrhea. Patient has an appointment with her DEPUTY BUILDING GUARD, Dr. Kearney, on Tuesday. - Related Data Allergies Allergy/AdvReac Type Severity Reaction Status Date / Time ondansetron Allergy Hives Verified 01/19/20 10:46 Past Medical History - Past Health History Medical/Surgical History: Denies Medical/Surgical History HEENT History: Reports: Impaired Vision Cardiovascular History: Reports: None Respiratory History: Reports: Asthma Gastrointestinal History: Reports: None DEPUTY BUILDING GUARD History: Reports: Other DEPUTY BUILDING GUARD History: heavy periods Musculoskeletal History: Reports: Back Pain, Chronic, Neck Pain, Chronic Neurological History: Reports: None Psychiatric History: Reports: Anxiety, Depression Endocrine/Metabolic History: Reports: Obesity/BMI 30+ Hematologic History: Reports: None Immunologic History: Reports: None Oncologic (Cancer) History: Reports: None Dermatologic History: Reports: None - Infectious Disease History Infectious Disease History: Reports: None - Past Surgical History HEENT Surgical History: Reports: Tonsillectomy Female Surgical History: Reports: Section Social & Family History - Family History Family Medical History: Noncontributory HEENT: Reports: None Cardiac: Reports: None Respiratory: Reports: None GI: Reports: None : Reports: None OBGYN: Reports: None Musculoskeletal: Reports: None Neurological: Reports: None Psychiatric: Reports: None Endocrine/Metabolic: Reports: None Hematologic: Reports: None Immunologic: Reports: None Dermatologic: Reports: None Oncologic: Reports: None - Tobacco Use Smoking Status *Q: Former Smoker Used Tobacco, but Quit: Yes Month/Year Tobacco Last Used: 12/2019 - Caffeine Use Caffeine Use: Reports: Soda - Recreational Drug Use Recreational Drug Use: No - Living Situation & Occupation Living situation: Reports: Single, with Family Occupation: Employed ([employer]) ED ROS GENERAL - Review of Systems Review Of Systems: Comprehensive ROS is negative, except as noted in HPI. ED EXAM - Physical Exam Exam: See Below Exam Limited By: No Limitations General Appearance: Alert, WD/WN, No Apparent Distress Respiratory/Chest: No Respiratory Distress, Lungs Clear, Normal Breath Sounds, No Accessory Muscle Use, Chest Non-Tender Cardiovascular: Normal Peripheral Pulses, Regular Rate, Rhythm, No Edema, No Gallop, No JVD, No Murmur, No Rub GI/Abdominal Exam: Normal Bowel Sounds, Soft, Non-Tender, No Organomegaly, No Distention, No Abnormal Bruit, No Mass, Pelvis Stable, Other (No suprapubic pain or tenderness.) Neurological: Alert, Oriented, CN II-XII Intact, Normal Cognition, Normal Gait, Normal Reflexes, No Motor/Sensory Deficits Psychiatric: Normal Affect, Normal Mood Skin Exam: Warm, Dry, Intact, Normal Color, No Rash Course - Vital Signs Last Recorded V/S: Last Vital Signs Temp 97.8 F 01/19/20 10:43 Pulse 65 01/19/20 10:43 Resp 14 01/19/20 10:43 BP 123/68 01/19/20 10:43 Pulse Ox 99 01/19/20 10:43 - Re-Assessments/Exams Free Text/Narrative Re-Assessment/Exam: Patient is a 24-year-old female G2, P1 5 weeks presents with some light spotting visible only on the toilet paper after intercourse. Patient is having no cramping or pain associated with this. Discussed with her that some light spotting is fairly common early . Since she is not having any pain or significant bleeding associated with this, I do not feel an ultrasound is warranted at this time. She has an appointment with Dr. Kearney on Tuesday. Recommend that she abstain from sexual activity until she follows up with him at that time. Discharge instructions as documented. Departure - Departure Time of Disposition: 11:17 Disposition: Home, Self-Care 01 Condition: Good Clinical Impression: Bleeding in early - Discharge Information *PRESCRIPTION DRUG MONITORING PROGRAM REVIEWED*: No *COPY OF PRESCRIPTION DRUG MONITORING REPORT IN PATIENT LETICIA: No Instructions: Vaginal Bleeding During , First Trimester, Vaginal Bleeding During , First Trimester, Oaid-lz-Nior Referrals: Yohannes Kearney MD [Primary Care Provider] - Forms: ED Department Discharge Additional Instructions: You were seen in the emergency department today for some light spotting after intercourse. As we discussed, it is common to have some light spotting in early . You denied any pain or cramping associated with the spotting. I would recommend that you rest and abstain from sexual intercourse for the next couple days. Keep your appointment with your DEPUTY BUILDING GUARD on Tuesday. If you should experience any increase in bleeding or the onset of any pain or cramping associated with this, I would recommend that you return to the emergency department for evaluation. Sepsis Event Note - Evaluation Sepsis Screening Result: No Definite Risk - Focused Exam Vital Signs: Vital Signs Temp Pulse Resp BP Pulse Ox 01/19/20 10:43 97.8 F 65 14 123/68 99 Date Exam was Performed: 01/19/20 Time Exam was Performed: 20:37
== END 2020-01-19 11:24 | disposition home or self-care (01) ==
LOC: JD.ED 10:33
DX: O20.9 Hemorrhage in early pregnancy, unspecified (principal); O99.511 Diseases of the respiratory system complicating pregnancy, first trimester; J45.909 Unspecified asthma, uncomplicated; O99.211 Obesity complicating pregnancy, first trimester; Z88.8 Allergy status to other drugs, medicaments and biological substances; Z87.891 Personal history of nicotine dependence; Z3A.01 Less than 8 weeks gestation of pregnancy; Z68.32 Body mass index [BMI] 32.0-32.9, adult
CPT/HCPCS: 99283

== ENCOUNTER 2020-02-09 16:06 | Emergency (ER) | payer OTHER, MEDICAID ==
[2020-02-09 16:22] VITALS: BP 125/70; PULSE 72
--- NOTE | 2020-02-09 17:52 | EDM.PDOC ---
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 She was in her yard doing some work and she stepped on something and rolled her ankle and she fall. She did not hit her head or hurt her neck. She has pain to the left lower abdomen. She is about 9 weeks gestation and she is . She denies any bleeding or discharge. Onset: Sudden Duration: Minutes: Quality: Reports: Sharp Severity: Mild Improves with: Reports: None Worsens with: Reports: None Associated Symptoms: Reports: No Other Symptoms Right Flank Pain Score (Numeric/FACES): 6 - Related Data Allergies Allergy/AdvReac Type Severity Reaction Status Date / Time ondansetron Allergy Hives Verified 02/09/20 16:22 Home Meds: Home Meds No122/Iron/Folic Acid [ Multi Tablet] 1 tab PO DAILY 02/09/20 [ History] Past Medical History - Past Health History Medical/Surgical History: Denies Medical/Surgical History HEENT History: Reports: Impaired Vision Cardiovascular History: Reports: None Respiratory History: Reports: Asthma Gastrointestinal History: Reports: None 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 Musculoskeletal History: Reports: Back Pain, Chronic, Neck Pain, Chronic Neurological History: Reports: None Psychiatric History: Reports: Anxiety, Depression Endocrine/Metabolic History: Reports: Obesity/BMI 30+ Hematologic History: Reports: None Immunologic History: Reports: None Oncologic (Cancer) History: Reports: None Dermatologic History: Reports: None - Infectious Disease History Infectious Disease History: Reports: None - Past Surgical History HEENT Surgical History: Reports: Tonsillectomy Female Surgical History: Reports: Section Social & Family History - Family History Family Medical History: Noncontributory HEENT: Reports: None Cardiac: Reports: None Respiratory: Reports: None GI: Reports: None : Reports: None OBGYN: Reports: None Musculoskeletal: Reports: None Neurological: Reports: None Psychiatric: Reports: None Endocrine/Metabolic: Reports: None Hematologic: Reports: None Immunologic: Reports: None Dermatologic: Reports: None Oncologic: Reports: None - Tobacco Use Smoking Status *Q: Former Smoker Used Tobacco, but Quit: Yes Month/Year Tobacco Last Used: 02/2018 Second Hand Smoke Exposure: No - Caffeine Use Caffeine Use: Reports: Soda, Tea Caffeine Use Comment: rarely - Recreational Drug Use Recreational Drug Use: No - Living Situation & Occupation Living situation: Reports: Single, with Family Occupation: Employed ([employer]) ED ROS GENERAL - Review of Systems Review Of Systems: See Below Constitutional: Reports: No Symptoms HEENT: Reports: No Symptoms Respiratory: Reports: No Symptoms Cardiovascular: Reports: No Symptoms Endocrine: Reports: No Symptoms GI/Abdominal: Reports: Abdominal Pain : Reports: No Symptoms Musculoskeletal: Reports: No Symptoms Skin: Reports: No Symptoms ED EXAM - Physical Exam Exam: See Below Exam Limited By: No Limitations General Appearance: Alert, No Apparent Distress Ears: Normal External Exam Nose: Normal Inspection Head: Atraumatic, Normocephalic Neck: Normal Inspection Respiratory/Chest: No Respiratory Distress, Lungs Clear, Normal Breath Sounds Cardiovascular: Regular Rate, Rhythm, No Edema, No Murmur GI/Abdominal Exam: Soft, No Organomegaly, No Mass, Tender (Mild tenderness to the left lower abdomen) Course - Vital Signs Last Recorded V/S: Last Vital Signs Temp 98.4 F 02/09/20 16:17 Pulse 72 02/09/20 16:17 Resp 18 02/09/20 16:17 BP 125/70 02/09/20 16:17 Pulse Ox 100 02/09/20 16:17 - Orders/Labs/Meds Labs: Laboratory Tests 02/09/20 02/09/20 02/09/20 Range/Units 16:45 16:45 16:45 WBC 13.10 H (3.98-10.04) K/mm3 RBC 3.90 L (3.98-5.22) M/mm3 Hgb 12.7 D (11.2-15.7) gm/dl Hct 36.6 (34.1-44.9) % MCV 93.8 (79.4-94.8) fl MCH 32.6 H (25.6-32.2) pg MCHC 34.7 (32.2-35.5) g/dl RDW Std Deviation 42.2 (36.4-46.3) fL Plt Count 341 (182-369) K/mm3 MPV 9.2 L (9.4-12.3) fl Neut % (Auto) 77.7 H (34.0-71.1) % Lymph % (Auto) 15.6 L (19.3-51.7) % [place] % (Auto) 5.6 (4.7-12.5) % Eos % (Auto) 0.7 (0.7-5.8) Baso % (Auto) 0.2 (0.1-1.2) % Neut # (Auto) 10.17 H (1.56-6.13) K/mm3 Lymph # (Auto) 2.05 (1.18-3.74) K/mm3 [place] # (Auto) 0.74 H (0.24-0.36) K/mm3 Eos # (Auto) 0.09 (0.04-0.36) K/mm3 Baso # (Auto) 0.02 (0.01-0.08) K/mm3 Manual Slide Review Normal smear HCG, Quant 789311.0 mIU/mL Blood Type A POSITIVE - Re-Assessments/Exams Free Text/Narrative Re-Assessment/Exam: 02/09/20 17:51 I ordered labs and an US to assess the fetus. 02/09/20 18:01 Her CBC looks good and her HCG looks good. She is A positive. Her US shows single intrauterine gestation at 9 weeks 0 days gestation. FHR is 179. No complicating process is seen by US at this time. Departure - Departure Time of Disposition: 18:05 Disposition: Home, Self-Care 01 Condition: Good Clinical Impression: Fall Qualifiers: Encounter type: initial encounter Qualified Code(s): W19.XXXA - Unspecified fall, initial encounter Qualifiers: Weeks of gestation: 9 weeks Qualified Code(s): Z3A.09 - 9 weeks gestation of Abdominal pain Qualifiers: Abdominal location: left lower quadrant Qualified Code(s): R10.32 - Left lower quadrant pain - Discharge Information *PRESCRIPTION DRUG MONITORING PROGRAM REVIEWED*: Not Applicable *COPY OF PRESCRIPTION DRUG MONITORING REPORT IN PATIENT LETICIA: Not Applicable Referrals: Yohannes Kearney MD [Primary Care Provider] - 1 Week Forms: ED Department Discharge Additional Instructions: Take tylenol as needed for pain. Please return if you are worse. Sepsis Event Note - Evaluation Sepsis Screening Result: No Definite Risk - Focused Exam Vital Signs: Vital Signs Temp Pulse Resp BP Pulse Ox 02/09/20 16:17 98.4 F 72 18 125/70 100 Date Exam was Performed: 02/09/20 Time Exam was Performed: 18:01
--- NOTE | 2020-02-09 17:53 | US ---
First trimester obstetrical ultrasound: Multiple real-time images were obtained transvaginally. Comparison: Previous obstetrical ultrasound of 01/22/20. Dates: LMP: LMP given as 12/09/19, [facility] 09/14/20, gestational age 8 weeks 6 days Current ultrasound: [facility] 09/13/20, gestational age 9 weeks 0 days Earliest ultrasound (01/22/20): [facility] 09/17/20, 8 weeks 3 days Single intrauterine gestation is seen. Amniotic fluid volume appears within normal limits. Yolk sac and embryo are identified. No subchorionic hemorrhage is seen. Maternal ovaries are within normal limits. Measurements: P[place]ra-rump length: 2.34 cm - 9 weeks 0 days Heart rate: 179 BPM Impression: 1. Single intrauterine gestation. Dates as noted above. 2. No complicating process is seen by ultrasound at this time. Diagnostic code #1 Study was dictated in MDT
== END 2020-02-09 18:10 | disposition home or self-care (01) ==
LOC: JD.ED 16:06
DX: O99.89 Other specified diseases and conditions complicating pregnancy, childbirth and the puerperium (principal); R10.32 Left lower quadrant pain; Z87.891 Personal history of nicotine dependence; Z88.8 Allergy status to other drugs, medicaments and biological substances; Z3A.09 9 weeks gestation of pregnancy; W19.XXXA Unspecified fall, initial encounter
CPT/HCPCS: 36415; 76817; 76817-26; 84702; 85025; 86900; 86901; 99282; 99284-25

== ENCOUNTER 2020-09-10 05:38 | Inpatient (IN) | payer MEDICAID ==
--- NOTE | 2020-09-09 20:49 | PCM.LDHP ---
L&D History of Present Illness - General Date of Service: 09/10/20 Admit Problem/Dx: Admission Diagnosis/Problem Admission Diagnosis/Problem section 09/09/20 20:36 Isabelle is a 25-year-old 2 para 0-1-0-1 white female to be admitted on 09/10/2020 at 39-3/7 weeks gestational age with an NARA of 09/14/2020 for elective repeat section. Source of Information: Patient History Limitations: Reports: No Limitations - History of Present Illness Introduction:: Isabelle is a 25-year-old 2 para 0-1-0-1 white female to be admitted on 09/10/2020 at 39-3/7 weeks gestational age with an NARA of 09/14/2020 for elective repeat section. The procedure, risk, benefits, alternatives of care and follow-up were discussed in detail with the patient. She appears understand, has signed a consent and wishes to proceed. AREA REPRESENTATIVE history: Win Walton is a 2 para 0-1-0-1 white female. She had menarche at approximately age 15. Cycles are monthly. Fairly regular. Last menstrual period was somewhat uncertain however. Previous obstetric history consists of the followin. Female born 05/01/2014 at 35-5/7 weeks gestational age by primary section done for preeclampsia, oligohydramnios. Patient was delivered in [place] at [facility]. Baby's name was Paloma Woodward. Patient denies any sexual transmitted diseases or abnormal Pap smears. history: Patient was first seen for this at 12 weeks and 3 days. The NARA of 09/14/2020 was determined by an ultrasound done at that time. It was supported by multiple ultrasounds done since that time. 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 Patient was seen by Dr. Mota [facility], was offered amniocentesis with karyotype but refused. [facility] recommendation was for local delivery in [place]. The patient has a history of MRSA infection-no active lesions at this time. Previous vulvar lesion positive for MRSA was treated in March 2020. She has had an abnormal 1 hour GTT but a normal 3-hour GTT. She has a history of asthma which has not caused any problems during the course of the . Her [place] depression screen score on 04/14/2020 was 3/30. The baby has been running large for gestational age. The patient has a history of posttraumatic stress disorder. Tdap was administered on 07/07/2020. Patient had her flu shot on 07/30/2020. She is rubella immune. Laboratory testing in shows her blood to be a positive with a negative antibody screen. First hemoglobin was 13.1 g/dL. Platelets were 326,000. Pap smear was negative. It showed no endocervical cells however. She is rubella immune. RPR is nonreactive. Patient was group B strep positive on urine culture done at first visit. Her hepatitis B surface antigen and HIV assays were both negative as were her chlamydia and gonorrhea tests. Second trimester labs showed a hemoglobin 11.2 g/dL. At that time patient was advised to get on additional iron therapy in the form of ferrous sulfate 325 mg p.o. daily. Platelets at the same time were 290,000. Her 1 hour glucose tolerance test was 166. Her 3-hour glucose tolerance test showed a fasting glucose of 86. Her 1 hour glucose was 160. 2-hour glucose was 154. 3-hour glucose was 126. Tear of a labial carbuncle 04/01/2020 showed Staph aureus which was methicillin resistant. He has no active lesions at this time. Allergies: 1. Seasonal allergies 2. Zofran tabs which cause vomiting Medications: 1. Acetaminophen hydrocodone 5/300 mg every 6 hours as needed earlier in the 2. Olanzapine 2.5 mg tablets daily 3. Doxylaminepyridoxine 10-10 mg as needed early in the for nausea. 4. Symbicort inhalation aerosol 5. Proventil 90 mcg per action aerosol as needed 6. vitamins Past medical history: 1. Asthma 2. Preeclampsia with oligohydramnios with her first resulted in C- section for compromise Past surgical history: 1. 2015 2. Tonsillectomy and adenoidectomy at age 5. Family history: Mother is alive but has some type of cancer type unknown. She is also borderline diabetic. Father is alive. Has bipolar disease, asthma, drug and alcohol abuse history. Maternal grandmother is alive, skin cancer, diabetes, heart disease and hypertension. Paternal grandmother and paternal grandfather history unknown. There is no known family history of cancer otherwise, bleeding or blood clotting disorders, anesthesia related issues or related issues Social history: Patient is . He works at [employer]. She is a high school graduate. She does not use any significant muscle alcohol, drugs or tobacco. is Shilo Taylor. They live in [place], [place]. Review of systems: In general patient has no complaints. Baby has been active. No significant contractions noted. Skin: Negative Lungs: No infectious symptoms or shortness of breath Cardiovascular: No chest pain or exercise intolerance Breasts: No lumps, changes in size, pain, dimpling, discharge or axillary or supraclavicular concerns. GI: Negative : Body habitus changes associated with . Musculoskeletal: Negative Neurological: Negative Physical exam: In general the patient is well-developed, well-nourished, pleasant female of stated age in no acute distress. On last evaluation clinic her weight was 237 pounds. Blood pressure is 110/74. heart rate was 154. Pregravid weight was 200 pounds with a increase of 37 pounds. Height is 5 feet 4 inches. Prepregnancy BMI was 30.9. Skin is warm dry without lesions. HEENT, neck and back within normal limits. Lungs are clear with good breath sounds in all lung chen. Cardiovascular exam shows regular and rhythm without murmurs. Breast exam done at first visit was found to be normal. It is not repeated at this time. Abdomen is gravid with the last fundal height in clinic at 40.5 cm. Baby in vertex presentation.. Genital per digital exam on last evaluation 08/18/2020 in clinic shows cervix to be closed, thick, soft, -3 station in mid position. Extremities and neurological exam are grossly within normal limits. - Related Data Allergies/Adverse Reactions: Allergies Allergy/AdvReac Type Severity Reaction Status Date / Time ondansetron Allergy Mild Hives Verified 09/09/20 09:58 Home Medications: Home Meds No122/Iron/Folic Acid [ Multi Tablet] 1 tab PO DAILY 02/09/20 [History] Aspirin 81 mg PO DAILY 05/05/20 [History] Acetaminophen [Tylenol] 650 mg PO Q6HR PRN 09/09/20 [History] Albuterol [Proventil HFA] 2 puff INH BID PRN 09/09/20 [History] Budesonide/Formoterol [Symbicort 160-4.5 MCG] 1 puff INH DAILY PRN 09/09/20 [History] OLANZapine [Olanzapine] 2.5 mg PO DAILY 09/09/20 [History] Past Medical History - Past Health History Medical/Surgical History: Denies Medical/Surgical History HEENT History: Reports: Impaired Vision Cardiovascular History: Reports: None Respiratory History: Reports: Asthma Gastrointestinal History: Reports: None Genitourinary History: Reports: UTI, Recurrent 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 C/S in 2016 Musculoskeletal History: Reports: Back Pain, Chronic, Neck Pain, Chronic Neurological History: Reports: None Psychiatric History: Reports: Anxiety, Depression, PTSD Endocrine/Metabolic History: Reports: Obesity/BMI 30+ Hematologic History: Reports: None Immunologic History: Reports: None Oncologic (Cancer) History: Reports: None Dermatologic History: Reports: None - Infectious Disease History Infectious Disease History: Reports: MRSA Other Infectious Disease History: MRSA on vulvar lesion positive 04/04/20- treated with Clindamycin - Past Surgical History HEENT Surgical History: Reports: Adenoidectomy, Tonsillectomy Other HEENT Surgeries/Procedures: T&A at age 5 Female Surgical History: Reports: Section Social & Family History - Family History Family Medical History: Noncontributory HEENT: Reports: None Cardiac: Reports: None Respiratory: Reports: None GI: Reports: None : Reports: None OBGYN: Reports: None Musculoskeletal: Reports: None Neurological: Reports: None Psychiatric: Reports: None Endocrine/Metabolic: Reports: None Hematologic: Reports: None Immunologic: Reports: None Dermatologic: Reports: None Oncologic: Reports: None - Tobacco Use Tobacco Use Status *Q: Never Tobacco User Second Hand Smoke Exposure: No - Caffeine Use Caffeine Use: Reports: None Caffeine Use Comment: rarely - Recreational Drug Use Recreational Drug Use: No - Living Situation & Occupation Living situation: Reports: Single, with Family Occupation: Employed ([employer]) H&P Review of Systems - Review of Systems: Review Of Systems: See Below L&D Exam - Exam Exam: See Below Problem List Initiated/Reviewed/Updated: Yes Orders Last 24hrs: Active Orders 24 hr Category Date Time Status Nurse Communication: Isolation [RC] ASDIRECTED Care 09/09/20 09:57 Active Isolation [COMM] Routine Oth 09/09/20 09:57 Ordered Assessment/Plan Comment:: 1. 39-3/7-week intrauterine , history of previous section done for severe preeclampsia and oligihydramniosdesire for repeat section. 2. History of 40 5X/46 XY mosaicism on prequel noninvasive screen. Patient has seen [facility] who recommended amniocentesis with karyotype. Patient refuses this however. [facility] recommendation is to deliver locally. Also to perform a karyotype after delivery. 3. Group B strep positive 4. MRSA history March 2020 with no active lesions at the present time 5. Large for gestational age baby. 6. risk factors include: History of previous , obesity, asthma, history of PTSD, group B strep positive status, 40 5X/46 XY mosaicism, large for gestational age baby. Plan: 1. Repeat lower uterine segment transverse section through Pfannenstiel skin incision under spinal block. Procedure, risk, benefits, alternatives of care including attempt at trial of labor after section for vaginal delivery after section all discussed in detail with the patient. She appears to understand and wishes to proceed with this repeat section. 2. DVT prophylaxis with SCDs 3. Infection prophylaxis with Ancef 2 g IV preop 4. Preoperative evaluation consist of Covid19 testing, CBC, type and screen, urine analysis 5. [facility] recommends karyotype after delivery 6. MRSA precautions to be taken after surgery 7. Maintain asthma medications if indicated 8. Patient is not indicated whether she will breast-feed or bottle feed.
[~2020-09-10 05:38] MED LIST: Lactated Ringers 1,000 ML IV SCH; Sodium Chloride 0.9% 10 ML Syringe FLUSH PRN
[2020-09-10] MEDS ORDERED: ceFAZolin 2 GM in Premix Bag 1 BAG IV ONE (06:00)
[2020-09-10] MEDS ORDERED: Metoclopramide 10 MG/2 ML SDV IVPUSH ONE (06:30)
[2020-09-10] MEDS ORDERED: Citric Acid/Sodium Citrate Solution 30 ML Cup PO ONE (06:30)
[2020-09-10] MEDS ORDERED: Oxytocin/Lactated Ringers 20 UNIT/1,000 ML BAG IV SCH (07:00)
[2020-09-10] MEDS ORDERED: Metoclopramide 10 MG/2 ML SDV ONE (07:05)
[2020-09-10] MEDS ORDERED: Citric Acid/Sodium Citrate Solution 30 ML Cup ONE (07:05)
--- NOTE | 2020-09-10 07:08 | PCM.PREANE ---
Preanesthetic Assessment - Procedure Proposed Procedure: Repeat - Anesthesia/Transfusion/Family Hx Anesthesia History: Prior Anesthesia Without Reaction Other Type of Anesthesia Reaction Comment: pt is very anxious and asking many question and if she can have something. Family History of Anesthesia Reaction: No Transfusion History: No Prior Transfusion(s) Intubation History: Unknown - Review of Systems General: No Symptoms Pulmonary: No Symptoms (Asthma-last used inhaler 4 months ago. ) Cardiovascular: No Symptoms Gastrointestinal: No Symptoms Neurological: No Symptoms, Headache Other: Reports: None, Easy Bruising, Sinus Problem (Seasonal Allergies), Depression (PTSD), Anxiety - Physical Assessment NPO Status Date: 09/09/20 NPO Status Time: 22:00 Vital Signs: Last Vital Signs Temp 36.3 C 09/10/20 05:40 Pulse 93 09/10/20 05:40 Resp 16 09/10/20 05:40 BP 124/76 09/10/20 05:40 Pulse Ox 95 09/10/20 05:40 Height: 1.63 m Weight: 106.594 kg ASA Class: 2 Mental Status: Alert & Oriented x3 Airway Class: Mallampati = 2 Dentition: Reports: Normal Dentition (tongue piercing removed/lower lip plastic earings remain), Caries Thyro-Mental Finger Breadths: 3 Mouth Opening Finger Breadths: 3 ROM/Head Extension: Full Lungs: Clear to Auscultation, Normal Respiratory Effort Cardiovascular: Regular Rate, Regular Rhythm, No Murmurs - Lab Values: Laboratory Last Values WBC 10.42 K/mm3 (3.98-10.04) H 09/10/20 06:05 RBC 3.95 M/mm3 (3.98-5.22) L 09/10/20 06:05 Hgb 12.7 gm/dl (11.2-15.7) 09/10/20 06:05 Hct 38.3 % (34.1-44.9) 09/10/20 06:05 MCV 97.0 fl (79.4-94.8) H 09/10/20 06:05 MCH 32.2 pg (25.6-32.2) 09/10/20 06:05 MCHC 33.2 g/dl (32.2-35.5) 09/10/20 06:05 RDW Std Deviation 45.2 fL (36.4-46.3) 09/10/20 06:05 Plt Count 263 K/mm3 (182-369) 09/10/20 06:05 MPV 9.6 fl (9.4-12.3) 09/10/20 06:05 Neut % (Auto) 63.2 % (34.0-71.1) 09/10/20 06:05 Lymph % (Auto) 25.1 % (19.3-51.7) 09/10/20 06:05 [place] % (Auto) 8.7 % (4.7-12.5) 09/10/20 06:05 Eos % (Auto) 0.4 (0.7-5.8) L 09/10/20 06:05 Baso % (Auto) 0.3 % (0.1-1.2) 09/10/20 06:05 Neut # (Auto) 6.58 K/mm3 (1.56-6.13) H 09/10/20 06:05 Lymph # (Auto) 2.62 K/mm3 (1.18-3.74) 09/10/20 06:05 [place] # (Auto) 0.91 K/mm3 (0.24-0.36) H 09/10/20 06:05 Eos # (Auto) 0.04 K/mm3 (0.04-0.36) 09/10/20 06:05 Baso # (Auto) 0.03 K/mm3 (0.01-0.08) 09/10/20 06:05 Above labs reviewed and noted and within acceptable ranges to proceed with scheduled procedure. - Allergies Allergies/Adverse Reactions: Allergies Allergy/AdvReac Type Severity Reaction Status Date / Time ondansetron Allergy Mild Hives Verified 09/09/20 09:58 - Anesthesia Plan Pre-Op Medication Ordered: None - Acknowledgements Anesthesia Type Planned: Spinal Pt an Appropriate Candidate for the Planned Anesthesia: Yes Alternatives and Risks of Anesthesia Discussed w Pt/Guardian: Yes Pt/Guardian Understands and Agrees with Anesthesia Plan: Yes PreAnesthesia Questionnaire - Past Health History Medical/Surgical History: Denies Medical/Surgical History HEENT History: Reports: Impaired Vision Cardiovascular History: Reports: None Respiratory History: Reports: Asthma Gastrointestinal History: Reports: None Genitourinary History: Reports: UTI, Recurrent [employer]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 C/S in 2016 Musculoskeletal History: Reports: Back Pain, Chronic, Neck Pain, Chronic Neurological History: Reports: None Psychiatric History: Reports: Anxiety, Depression, PTSD Endocrine/Metabolic History: Reports: Obesity/BMI 30+ Hematologic History: Reports: None Immunologic History: Reports: None Oncologic (Cancer) History: Reports: None Dermatologic History: Reports: None - Infectious Disease History Infectious Disease History: Reports: MRSA Other Infectious Disease History: MRSA on vulvar lesion positive 04/04/20- treated with Clindamycin - Past Surgical History HEENT Surgical History: Reports: Adenoidectomy, Tonsillectomy Other HEENT Surgeries/Procedures: T&A at age 5 Female Surgical History: Reports: Section - SUBSTANCE USE Tobacco Use Status *Q: Never Tobacco User Second Hand Smoke Exposure: No Recreational Drug Use History: No - HOME MEDS Home Medications: Home Meds No122/Iron/Folic Acid [ Multi Tablet] 1 tab PO DAILY 02/09/20 [History] Aspirin 81 mg PO DAILY 05/05/20 [History] Acetaminophen [Tylenol] 650 mg PO Q6HR PRN 09/09/20 [History] Albuterol [Proventil HFA] 2 puff INH BID PRN 09/09/20 [History] Budesonide/Formoterol [Symbicort 160-4.5 MCG] 1 puff INH DAILY PRN 09/09/20 [History] OLANZapine [Olanzapine] 2.5 mg PO DAILY 09/09/20 [History] - CURRENT (IN HOUSE) MEDS Current Meds: Current Medications Lactated Ringer's (Ringers, Lactated) 1,000 mls @ 125 mls/hr IV ASDIRECTED BONNY Oxytocin/Lactated Ringer's (Pitocin In Lr 20 Units/1,000 Ml) 20 unit in 1,000 mls @ 500 mls/hr IV TITRATE BONNY; Protocol Sodium Chloride (Saline Flush) 10 ml FLUSH ASDIRECTED PRN PRN Reason: Keep Vein Open Discontinued Medications Citric Acid/Sodium Citrate (Bicitra Solution) 30 ml PO ONETIME ONE Stop: 09/10/20 06:31 Cefazolin Sodium/Dextrose 2 gm (/ Premix) 50 mls @ 100 mls/hr IV ONETIME ONE Stop: 09/10/20 06:29 Metoclopramide HCl (Reglan) 10 mg IVPUSH ONETIME ONE Stop: 09/10/20 06:31
[2020-09-10] MEDS ORDERED: Bupivacaine 0.5% 30 ML SDV ONE (07:15)
[2020-09-10] MEDS ORDERED: Lactated Ringers 2,000 ML ONE (07:25)
[2020-09-10] MEDS ORDERED: Ketorolac 30 MG/ML SDV ONE (07:25)
[2020-09-10] MEDS ORDERED: ceFAZolin 1 GM Vial ONE (07:25)
[2020-09-10] MEDS ORDERED: Morphine PF 10 MG/10 ML SDV ONE (07:25)
[2020-09-10] MEDS ORDERED: Oxytocin 10 Units/1 ML SDV ONE (07:25)
[2020-09-10] MEDS ORDERED: Dexamethasone 4 MG/ML SDV ONE (07:25)
[2020-09-10] MEDS ORDERED: ePHEDrine 50 MG/ML SDV IVPUSH PRN ×2 (07:35→11:07)
[2020-09-10] MEDS ORDERED: fentaNYL 100 MCG/2 ML SDV IVPUSH PRN (07:35)
[2020-09-10] MEDS ORDERED: Midazolam 1 MG/ML 2 ML SDV IVPUSH PRN (07:35)
[2020-09-10] MEDS ORDERED: Haloperidol Lactate 5 MG/ML SDV IVPUSH ONE (07:35)
[2020-09-10] MEDS ORDERED: diphenhydrAMINE 50 MG/ML SDV IVPUSH PRN (07:35)
[2020-09-10] MEDS ORDERED: HYDROmorphone 0.5 MG/0.5 ML Syringe IVPUSH PRN (07:35)
[2020-09-10] MEDS ORDERED: Albuterol 0.083% 2.5 MG/3 ML Neb Soln NEB PRN (07:35)
[2020-09-10] MEDS ORDERED: Lidocaine 1% 2 ML ONE ×3 (08:12→08:15)
[2020-09-10] MEDS ORDERED: Lactated Ringers 1,000 ML ONE (08:38)
[2020-09-10] MEDS ORDERED: Meperidine 50 MG/ML Vial IVPUSH PRN (09:35)
--- NOTE | 2020-09-10 09:35 | PCM.POSTAN ---
POST ANESTHESIA ASSESSMENT - MENTAL STATUS Mental Status: Alert - VITAL SIGNS Vital Signs: Last Vital Signs Temp 36.5 C 09/10/20 09:25 Pulse 101 H 09/10/20 09:25 Resp 21 H 09/10/20 09:25 BP 125/81 09/10/20 09:25 Pulse Ox 99 09/10/20 09:25 - RESPIRATORY Respiratory Status: Respiratory Rate WNL, Airway Patent, O2 Saturation Stable - CARDIOVASCULAR CV Status: Pulse Rate WNL, Blood Pressure Stable - GASTROINTESTINAL GI Status: No Symptoms - POST OP HYDRATION Hydration Status: Adequate & Stable
[2020-09-10] MEDS ORDERED: Non-Formulary Medication 1 Each (Budesonide/Formoterol 1 PUFF) INH PRN (10:51)
[2020-09-10] MEDS ORDERED: Non-Formulary Medication 1 Each (Albuterol 2 PUFF) INH PRN (10:51)
[2020-09-10] MEDS ORDERED: Acetaminophen/oxyCODONE 325-5 MG Tab PO PRN (11:07)
[2020-09-10] MEDS ORDERED: Dextrose 5%-Lactated Ringers 1,000 ML IV SCH (11:07)
[2020-09-10] MEDS ORDERED: Docusate Sodium 100 MG Cap PO PRN (11:07)
[2020-09-10] MEDS ORDERED: Ondansetron 4 MG/2 ML SDV IV PRN (11:07)
[2020-09-10] MEDS ORDERED: Naloxone 0.4 MG/ML SDV IVPUSH PRN (11:07)
[2020-09-10] MEDS: diphenhydrAMINE 50 MG/ML SDV IVPUSH PRN ×2 (12:11→18:13)
--- NOTE | 2020-09-10 12:25 | PCM.OPNOTE ---
- General Post-Op/Procedure Note Date of Surgery/Procedure: 09/10/20 Operative Procedure(s): Repeat lower uterine segment transverse section through Pfannenstiel skin incision under spinal block. Findings: Minimal scarring was noted in the intra-abdominal wall. The lower in segment was very thin at no more than 1 to 2 mm. Amniotic fluid was seen through the lower uterine segment. Baby is in vertex presentation. Amniotic fluid was clear. Baby weighed 8 pounds 0 ounces. Apgars were 8 and 9. Pre Op Diagnosis: 1. 39-week intrauterine . 2. History of previous affecting Post-Op Diagnosis: Same Anesthesia Technique: Spinal Other Anesthesia Type: Marcaine 0.5% - 26 mLlocal Primary Surgeon: Yohannes Kearney Secondary Surgeon: Prudencio Hilliard Anesthesia Provider: Pastora Wilson Pipe Installer: Sarai Hamilton Reason Pipe Installer Was Necessary: Retraction, assistance, patient safety, quality of care. Fluid Replacement, Intraop: 1,500 EBL in mLs: 600 Drain/Tube Comments:: Indwelling bladder catheter Complications: None Condition: Good Free Text/Narrative:: Intake & Output 09/09/20 09/10/20 09/10/20 22:59 06:59 14:59 Intake Total 500 Output Total 120 Balance 380 Surgery duration: Approximately 30 minutes Surgery duration: Procedure: The patient is appropriately consented. Patient was transferred to the room and placed in a sitting position. Spinal anesthesia was administered. After confirmation of adequate anesthesia patient was placed in a supine position with a wedge under her right side to facilitate left lateral positioning. The patient was prepped and draped in usual fashion after [place] catheter was already placed . The anesthetic was checked and found to be adequate. 20 mL of Marcaine 0.5% was injected locally in the Pfannenstiel incision site. The Pfannenstiel skin incision was then made and carried down through skin, subcutaneous and fascial layers. The fascia was then undermined superiorly and inferiorly to allow for adequate operating room. The recti muscles midline and preperitoneal fat was bluntly dissected. Peritoneal cavity was entered longitudinally. The vesicouterine peritoneum was then incised transversely and bladder flap was developed. Anterior lower uterine segment was found a very thin at only 1-2 mm. Fluid visualized through the lower uterine segment. Myometrium was incised transversely to the level of the amniotic sac. This incision was extended bilaterally in a blunt fashion. The amniotic sac was then ruptured resulting in clear amniotic fluid. A hand is placed in the low uterine segment and the baby's head was brought forth through the incision. The baby was completely delivered using fundal pressure in a routine fashion. The nose and mouth were bulb suctioned. Baby's cord was clamped x2 cut and baby was handed off to attending lithographed plate inspector Dr Reyes. Placenta was expressed after cord blood was obtained. Uterus was then exteriorized to allow for easier closure. The cervix was assessed and found to be dilated adequately to allow egress of blood. The uterus was closed in 2 layers. The first layer a running locked suture of 0 Monocryl, the second layer a running locked vertical mattress suture of 0 Monocryl. A third layer of 0 Monocryl suture was also placed in a vertical mattress suture fashion in order to further strengthen the lower uterine segment.. Hemostasis confirmed at this time. Sponge instrument needle counts are correct. The uterus was returned to the abdominal cavity and lateral gutters were cleared of blood. Once again sponge needle counts are correct. The anterior abdominal wall was closed with a #1 PDS suture from angle to angle. The subcutaneous area was found to be free of any bleeders. interrupted sutures of 3-0 Monocryl were used to reapproximate the subcutaneous layer.Skin was closed with a running subcuticular stitch of 3-0 Monocryl in a vertical mattress suture fashion using a Kapil needle. Prineo mesh/glue was then applied to further approximate the incision. It should be noted that patient received 2 g of Ancef preoperatively for infection prophylaxis and had Pitocin infused after delivery of the placenta to facilitate uterine contraction. She also had sequential compression stockings in place for DVT prophylaxis. Patient was discharged from the operating room in satisfactory condition.
[2020-09-10] MEDS: Acetaminophen/oxyCODONE 325-5 MG Tab PO PRN ×2 (12:33→22:00)
[2020-09-10] MEDS: Simethicone 80 MG Tab.Chew PO SCH ×3 (13:20→22:01)
[2020-09-10] MEDS ORDERED: Ibuprofen 800 MG Tab PO SCH (14:00)
[2020-09-10] MEDS: Ibuprofen 800 MG Tab PO SCH ×2 (14:58→23:36)
[2020-09-10] MEDS ORDERED: Sodium Chloride 0.9% 1,000 ML IV SCH (15:15)
[2020-09-10] MEDS ORDERED: Albuterol 6.7 GM Inhaler INH PRN (18:28)
[2020-09-10] MEDS: OLANZapine 5 MG Tab PO SCH (22:01)
[2020-09-10] MEDS: busPIRone 5 MG Tab PO SCH (22:02)
[2020-09-11] MEDS: Ibuprofen 800 MG Tab PO SCH ×3 (06:58→23:16)
--- NOTE | 2020-09-11 07:27 | PCM48HPAN ---
Post Anesthesia Note - EVALUATION WITHIN 48HRS OF ANESTHETIC Vital Signs in Normal Range: Yes Patient Participated in Evaluation: Yes Respiratory Function Stable: Yes Airway Patent: Yes Cardiovascular Function Stable: Yes Hydration Status Stable: Yes Pain Control Satisfactory: Yes Nausea and Vomiting Control Satisfactory: Yes Mental Status Recovered: Yes Vital Signs: Last Vital Signs Temp 36.2 C 09/11/20 03:53 Pulse 78 09/11/20 03:53 Resp 14 09/11/20 07:00 BP 123/56 L 09/11/20 03:53 Pulse Ox 99 09/11/20 07:00
[2020-09-11] MEDS ORDERED: OLANZapine 5 MG Tab PO SCH (09:00)
[2020-09-11] MEDS ORDERED: Prenatal Multivitamin with Calcium/Folic Acid/Iron Tab PO SCH (09:00)
[2020-09-11] MEDS: Acetaminophen/oxyCODONE 325-5 MG Tab PO PRN ×3 (09:04→21:03)
[2020-09-11] MEDS: Simethicone 80 MG Tab.Chew PO SCH ×4 (09:04→21:02)
[2020-09-11] MEDS: busPIRone 5 MG Tab PO SCH ×2 (09:04→21:03)
--- NOTE | 2020-09-11 18:02 | PCM.SN.2 ---
- Free Text/Narrative Note: note: Day #1 Patient is doing well in the period. Minimal lochia, voiding well, ambulated without problems. Nursing without concerns. Patient is MRSA positive so MRSA precautions are being taken in her hospital care. Patient is afebrile, vital signs are stable Abdomen is flat, soft, uterus is below the umbilicus and is firm and nontender. Incision appears dry, intact, Prineo mesh is in place. Legs are nontender. Assessment: /postoperative day #1 recovery going well. Plan: Routine postop care. Patient be discharged home within the next 24-48 hours. Is up to regular diet, near normal activity. IV, indwelling catheter and SCDs have been discontinued. Patient is bottlefeeding. She has been restarted on her depression medications.
[2020-09-11] MEDS: OLANZapine 5 MG Tab PO SCH (21:03)
[2020-09-12] MEDS: Acetaminophen/oxyCODONE 325-5 MG Tab PO PRN (03:23)
--- NOTE | 2020-09-12 06:08 | PCM.DCSUM1 ---
Discharge Summary - Hospital Course Free Text/Narrative:: Isabelle is a 25-year-old 2 now para 2-0-0-2 white female who was admitted on 09/10/2020 for elective repeat section. was complicated by an abnormal prequel testing which showed results consistent with 45\46 XY chromosomal make-up of the baby. There was a question as to whether this was placental mosaicism or influence from the mother's system. Patient declined amniocentesis and karyotype in the . She was seen by maternal- medicine. The was relatively unremarkable otherwise. She had had a previous section desired repeat section. On the a.m. of 09/10/2020 patient underwent A repeat lower uterine segment transverse section through Pfannenstiel skin incision under spinal block. There is minimum scarring noted in the intraabdominal wall. The lower uterine segment was very thin at no more than 1 to 2 mm. Amniotic fluid was clear and was seen through the lower uterine segment before incision. Baby is in a vertex presentation. Amniotic fluid is clear. Baby weight 8 pounds 0 ounces. Apgars were 8 and 9. patient is done very well. She is ambulating well. She is bottlefeeding because of her use of antidepressant therapy and desire not to n urse. She is voiding without concerns. Follow-up hemoglobin on day 1 postop was 9.6. She is desiring discharge home. Discharge instructions are given. Diagnosis: Stroke: No - Discharge Data Discharge Date: 09/12/20 Discharge Disposition: Home, Self-Care 01 Condition: Good - Referral to Home Health Primary Care Physician: Yohannes Kearney MD - Patient Summary/Data Operative Procedure(s) Performed: Repeat lower uterine segment transverse section through Pfannenstiel skin incision under spinal block. - Patient Instructions Diet: Regular Diet as Tolerated Activity: As Tolerated (No necrosis tampons until seen back. No lifting greater than 15 pounds or driving a car x1 week.) Driving: Do Not Drive Showering/Bathing: May Shower Wound/Incision Care: Keep Operative Site/Wound Site Clean and Dry Notify Provider of: Fever, Increased Pain, Swelling and Redness, Nausea and/or Vomiting - Discharge Plan Home Medications: Home Meds No122/Iron/Folic Acid [ Multi Tablet] 1 tab PO DAILY 02/09/20 [History] Acetaminophen [Tylenol] 650 mg PO Q6HR PRN 09/09/20 [History] Albuterol [Proventil HFA] 2 puff INH BID PRN 09/09/20 [History] Budesonide/Formoterol [Symbicort 160-4.5 MCG] 1 puff INH DAILY PRN 09/09/20 [History] OLANZapine [Olanzapine] 2.5 mg PO DAILY 09/09/20 [History] Acetaminophen/oxyCODONE [Percocet 325-5 MG] 1 tab PO Q4H PRN tablet 09/12/20 [Rx] Ibuprofen [Motrin] 800 mg PO Q8H tablet 09/12/20 [Rx] Referrals: Yohannes Kearney MD [Primary Care Provider] - (Return to clinic[facility]. [facility] weeks.) - Discharge Summary/Plan Comment DC Time >30 min.: No Discharge Summary/Plan Comment: Discharge instructions: 1. Discharge home 2. Diet, activity and follow-up discussed with patient. Recommend nursing diet with increased calories and calcium. 3. Precautions given concern increased pain, bleeding, temperature, signs/symptoms of DVT/PE. 4. Medications per home medication was printed, discussed with and given to the patient. 5. Return to clinic-Dr. Kearney-[facility] in 2 weeks. Diagnosis: Term -delivered Condition: Good - Patient Data Vitals - Most Recent: Last Vital Signs Temp 36.4 C 09/12/20 03:25 Pulse 94 09/12/20 03:25 Resp 17 09/12/20 03:25 BP 115/65 09/12/20 03:25 Pulse Ox 97 09/12/20 03:25 Weight - Most Recent: 106.594 kg I&O - Last 24 hours: Intake & Output 09/11/20 09/11/20 09/12/20 14:59 22:59 06:59 Intake Total 240 180 Output Total 1000 500 Balance -760 -320 Lab Results - Last 24 hrs: Laboratory Results - last 24 hr 09/11/20 Range/Units 06:20 WBC 13.40 H (3.98-10.04) K/mm3 RBC 3.02 L (3.98-5.22) M/mm3 Hgb 9.6 L D (11.2-15.7) gm/dl Hct 30.0 L (34.1-44.9) % MCV 99.3 H (79.4-94.8) fl MCH 31.8 (25.6-32.2) pg MCHC 32.0 L (32.2-35.5) g/dl RDW Std Deviation 45.8 (36.4-46.3) fL Plt Count 208 (182-369) K/mm3 MPV 9.8 (9.4-12.3) fl Neut % (Auto) 63.5 (34.0-71.1) % Lymph % (Auto) 25.0 (19.3-51.7) % Cavalier % (Auto) 9.6 (4.7-12.5) % Eos % (Auto) 0.1 L (0.7-5.8) Baso % (Auto) 0.1 (0.1-1.2) % Neut # (Auto) 8.49 H (1.56-6.13) K/mm3 Lymph # (Auto) 3.35 (1.18-3.74) K/mm3 Cavalier # (Auto) 1.29 H (0.24-0.36) K/mm3 Eos # (Auto) 0.02 L (0.04-0.36) K/mm3 Baso # (Auto) 0.02 (0.01-0.08) K/mm3 Manual Slide Review Abnormal smear Med Orders - Current: Current Medications Albuterol (Proventil Hfa) 0 gm INH Q4H PRN PRN Reason: Shortness of Breath Buspirone HCl (Buspar) 10 mg PO BID [facility] Last Admin: 09/11/20 21:03 Dose: 10 mg Documented by: Diphenhydramine HCl (Benadryl) 25 mg IVPUSH Q6H PRN PRN Reason: Itching or Nausea Last Admin: 09/10/20 18:13 Dose: 25 mg Documented by: Docusate Sodium (Colace) 100 mg PO Q12H PRN PRN Reason: Constipation Ephedrine Sulfate (Ephedrine Sulfate) 5 mg IVPUSH SEECOMMENT PRN PRN Reason: Other Sodium Chloride (Normal Saline) 1,000 mls @ 999 mls/hr IV .ONETIME [facility]ONNY Last Admin: 09/10/20 15:16 Dose: 999 mls/hr Documented by: Ibuprofen (Motrin) 800 mg PO Q8H [facility] Last Admin: 09/11/20 23:16 Dose: 800 mg Documented by: Naloxone HCl (Narcan) 0.1 mg IVPUSH SEECOMMENT PRN PRN Reason: Respiratory Depression Olanzapine (Zyprexa) 5 mg PO BEDTIME [facility] Last Admin: 09/11/20 21:03 Dose: 5 mg Documented by: Ondansetron HCl (Zofran) 4 mg IV Q4H PRN PRN Reason: Nausea/Vomiting Oxycodone/Acetaminophen (Percocet 325-5 Mg) 2 tab PO Q4H PRN PRN Reason: Pain (severe 7-10) Last Admin: 09/12/20 03:23 Dose: 2 tab Documented by: Oxycodone/Acetaminophen (Percocet 325-5 Mg) 1 tab PO Q4H PRN PRN Reason: Pain (moderate 4-6) Simethicone (Simethicone) 160 mg PO QID [facility] Last Admin: 09/11/20 21:02 Dose: 160 mg Documented by: Discontinued Medications Albuterol (Proventil Neb Soln) 2.5 mg NEB ONETIME PRN PRN Reason: asthma Bupivacaine HCl (Marcaine 0.5%) Confirm Administered Dose 30 ml .ROUTE .STK-MED ONE Stop: 09/10/20 07:16 Last Admin: 09/10/20 08:48 Dose: 20 ml Documented by: Cefazolin Sodium (Ancef) Confirm Administered Dose 2 gm .ROUTE .STK-MED ONE Stop: 09/10/20 07:26 Citric Acid/Sodium Citrate (Bicitra Solution) 30 ml PO ONETIME ONE Stop: 09/10/20 06:31 Last Admin: 09/10/20 07:23 Dose: 30 ml Documented by: Citric Acid/Sodium Citrate (Bicitra Solution) Confirm Administered Dose 30 ml .ROUTE .STK-MED ONE Stop: 09/10/20 07:06 Last Admin: 09/10/20 14:49 Dose: Not Given Documented by: Dexamethasone (Decadron) Confirm Administered Dose 4 mg .ROUTE .STK-MED ONE Stop: 09/10/20 07:26 Diphenhydramine HCl (Benadryl) 25 mg IVPUSH Q6H PRN PRN Reason: pruritis Ephedrine Sulfate (Ephedrine Sulfate) 5 mg IVPUSH ASDIRECTED PRN PRN Reason: Hypotension Fentanyl (Sublimaze) 50 mcg IVPUSH Q5M PRN PRN Reason: Pain Haloperidol Lactate (Haldol) 1 mg IVPUSH ONETIME ONE Stop: 09/10/20 07:36 Last Admin: 09/10/20 14:49 Dose: Not Given Documented by: Hydromorphone HCl (Dilaudid) 0.5 mg IVPUSH ONETIME PRN PRN Reason: Pain Lactated Ringer's (Ringers, Lactated) 1,000 mls @ 125 mls/hr IV ASDIRECTED [facility] Last Admin: 09/10/20 06:15 Dose: 125 mls/hr Documented by: Cefazolin Sodium/Dextrose 2 gm (/ Premix) 50 mls @ 100 mls/hr IV ONETIME ONE Stop: 09/10/20 06:29 Last Admin: 09/10/20 14:48 Dose: Not Given Documented by: Oxytocin/Lactated Ringer's (Pitocin In Lr 20 Units/1,000 Ml) 20 unit in 1,000 mls @ 500 mls/hr IV TITRATE BONNY; Protocol Lactated Ringer's (Ringers, Lactated) Confirm Administered Dose 2,000 mls @ as directed .ROUTE .ST-MED ONE Stop: 09/10/20 07:26 Lidocaine HCl (Xylocaine-Mpf 1%) Confirm Administered Dose 2 mls @ as directed .ROUTE .STK-MED ONE Stop: 09/10/20 08:13 Lidocaine HCl (Xylocaine-Mpf 1%) Confirm Administered Dose 2 mls @ as directed .ROUTE .STK-MED ONE Stop: 09/10/20 08:13 Lidocaine HCl (Xylocaine-Mpf 1%) Confirm Administered Dose 2 mls @ as directed .ROUTE .STK-MED ONE Stop: 09/10/20 08:16 Lactated Ringer's (Ringers, Lactated) Confirm Administered Dose 1,000 mls @ as directed .ROUTE .STK-MED ONE Stop: 09/10/20 08:39 Dextrose/Lactated Ringer's (Dextrose 5%-Lactated Ringers) 1,000 mls @ 125 mls/hr IV ASDIRECTED BONNY Stop: 09/10/20 19:06 Last Admin: 09/10/20 12:10 Dose: 125 mls/hr Documented by: Ibuprofen (Motrin) 800 mg PO Q8H [facility] Last Admin: 09/10/20 14:50 Dose: Not Given Documented by: Ketorolac Tromethamine (Toradol) Confirm Administered Dose 30 mg .ROUTE .STK-MED ONE Stop: 09/10/20 07:26 Meperidine HCl (Meperidine) 25 mg IVPUSH ONETIME PRN PRN Reason: Shivering Metoclopramide HCl (Reglan) 10 mg IVPUSH ONETIME ONE Stop: 09/10/20 06:31 Last Admin: 09/10/20 07:23 Dose: 10 mg Documented by: Metoclopramide HCl (Reglan) Confirm Administered Dose 10 mg .ROUTE .STK-MED ONE Stop: 09/10/20 07:06 Last Admin: 09/10/20 14:49 Dose: Not Given Documented by: Midazolam HCl (Versed 1 Mg/Ml) 2 mg IVPUSH ONETIME PRN PRN Reason: Sedation Miscellaneous Medication (Phenylephrine 1 Mg/10 Ml-Ns) Confirm Administered Dose 1 mg .ROUTE .STK-MED ONE Stop: 09/10/20 07:26 Miscellaneous Medication (Phenylephrine 1 Mg/10 Ml-Ns) 0 mg IVPUSH ONETIME ONE Stop: 09/10/20 07:36 Last Admin: 09/10/20 14:50 Dose: Not Given Documented by: Morphine Sulfate (Duramorph Pf) Confirm Administered Dose 10 mg .ROUTE .STK-MED ONE Stop: 09/10/20 07:26 Non-Formulary Medication (Albuterol) 2 puff INH BID PRN PRN Reason: Shortness of Breath Non-Formulary Medication (Budesonide/Formoterol) 1 puff INH DAILY PRN PRN Reason: Shortness of Breath Olanzapine (Zyprexa) 2.5 mg PO DAILY [facility] Oxytocin (Pitocin) Confirm Administered Dose 20 unit .ROUTE .STK-MED ONE Stop: 09/10/20 07:26 Prenat Multivit/Fabric Stretcher/Iron/Folic Ac ( Plus Iron) 1 each PO DAILY [facility] Sodium Chloride (Saline Flush) 10 ml FLUSH ASDIRECTED PRN PRN Reason: Keep Vein Open
[2020-09-12] MEDS: Ibuprofen 800 MG Tab PO SCH (07:13)
[2020-09-12 08:43] VITALS: BP 125/61; PULSE 81
[2020-09-12] MEDS: busPIRone 5 MG Tab PO SCH (10:12)
[2020-09-12] MEDS: Simethicone 80 MG Tab.Chew PO SCH (10:13)
== END 2020-09-12 10:30 | disposition home or self-care (01) | DRG 788 ==
LOC: JD.OB 05:38
PROVIDERS: ADMIT Obstetrics & Gynecology; ATTEND Obstetrics & Gynecology
PROC: 10D00Z1 Extraction of Products of Conception, Low, Open Approach (ICD-10-PCS; principal; 2020-09-10)
DX: O34.211 Maternal care for low transverse scar from previous cesarean delivery (principal); O99.824 Streptococcus B carrier state complicating childbirth; O99.344 Other mental disorders complicating childbirth; O99.214 Obesity complicating childbirth; Q96.3 Mosaicism, 45, X/46, XX or XY; J45.909 Unspecified asthma, uncomplicated; F41.8 Other specified anxiety disorders; F43.10 Post-traumatic stress disorder, unspecified; Z20.828 Contact with and (suspected) exposure to other viral communicable diseases; Z3A.39 39 weeks gestation of pregnancy; Z86.14 Personal history of Methicillin resistant Staphylococcus aureus infection; Z90.89 Acquired absence of other organs; Z88.8 Allergy status to other drugs, medicaments and biological substances; Z79.82 Long term (current) use of aspirin; Z79.51 Long term (current) use of inhaled steroids; Z79.52 Long term (current) use of systemic steroids; Z79.899 Other long term (current) drug therapy; Z87.440 Personal history of urinary (tract) infections; Z37.0 Single live birth
CPT/HCPCS: 01961; 36415; 59025; 85025; 86592; 86850; 86900; 86901; 94762; A9270-GY; J0690; J1100; J1200; J1885; J2001; J2270; J2370; J2590; J2765; J3490; J7030; J7120; J7121; U0002

== ENCOUNTER 2022-08-06 02:05 | Emergency (ER) | payer MEDICAID, OTHER ==
[2022-08-06 02:20] VITALS: BP 129/74; PULSE 136
[2022-08-06] MEDS ORDERED: Lactated Ringers 1,000 ML IV ONE (02:41)
[2022-08-06] MEDS ORDERED: Prochlorperazine 10 MG/2 ML SDV IVPUSH ONE (02:41)
[2022-08-06 04:17] LABS: CORONAVIRUS COVID-19 NAA NEGATIVE (NEGATIVE)
== END 2022-08-06 04:45 | disposition home or self-care (01) ==
LOC: JD.ED 02:05
DX: K52.9 Noninfective gastroenteritis and colitis, unspecified (principal); J45.909 Unspecified asthma, uncomplicated; E66.9 Obesity, unspecified; Z68.38 Body mass index [BMI] 38.0-38.9, adult; Z88.8 Allergy status to other drugs, medicaments and biological substances; Z79.899 Other long term (current) drug therapy; Z20.822 Contact with and (suspected) exposure to COVID-19
CPT/HCPCS: 0240U; 36415; 80053; 81001; 83690; 84703; 85025; 96361; 96374; 99284; J0780; J7120; 99283

== ENCOUNTER 2022-09-12 19:16 | Emergency (ER) | payer MEDICAID ==
[2022-09-12 19:27] VITALS: BP 153/104; PULSE 89
== END 2022-09-12 21:03 | disposition home or self-care (01) ==
LOC: JD.ED 19:16
DX: M25.511 Pain in right shoulder (principal); G89.29 Other chronic pain; E66.9 Obesity, unspecified; Z68.38 Body mass index [BMI] 38.0-38.9, adult; Z87.891 Personal history of nicotine dependence; Z88.8 Allergy status to other drugs, medicaments and biological substances; Z88.1 Allergy status to other antibiotic agents; Z79.899 Other long term (current) drug therapy
CPT/HCPCS: 73030-26-RT; 73030-RT; 99283